=== PATIENT | female | born 1945 | race Caucasian/White ===

== ENCOUNTER 2017-08-07 22:09 | Inpatient (IN) | payer MEDICARE, OTHER ==
[2017-08-07] MEDS ORDERED: NS 0.9% 1000 ML* 2,000 ML IV ONE (22:39)
[2017-08-07] MEDS ORDERED: methylPREDNISolone 125 MG* 2 ML VIAL IV ONE (22:39)
[2017-08-07] MEDS ORDERED: Acetaminophen TAB* 325 MG PO ONE (22:39)
[2017-08-07] MEDS ORDERED: Levofloxacin 750 MG IVPREMIX(* 750 MG/150 ML BAG IVPB ONE (22:42)
[2017-08-07] MEDS ORDERED: Albuterol/Ipratropium NEB.SOL* Albuterol 2.5 MG/Ipratropium 0.5 MG 3 ML INH ONE (22:42)
[2017-08-07] MEDS ORDERED: Magnesium Sulfate 2 GM IV* 2 GM/50 ML BAG IVPB ONE (22:42)
[2017-08-07] MEDS ORDERED: NS 0.9% 1000 ML* 1,000 ML IV ONE (22:46)
[2017-08-07] MEDS: Albuterol 2.5 MG/3 ML NEB.SOL* (0.083%) INH SCH ×2 (23:05→23:25)
[2017-08-07 23:08] LABS: Hematocrit 38 % (35-47); Hemoglobin 12.5 g/dl (12.0-16.0); Mean Corpuscular HGB Conc 33 g/dl (31-36); Mean Corpuscular Hemoglobin 31 pg (27-31); Mean Corpuscular Volume 94 fL (80-97); Mean Platelet Volume 7 um3 (7.4-10.4); Platelet Count 190 10^3/ul (150-450); Red Blood Count 4.03 10^6/ul (4.0-5.4); Red Cell Distribution Width 13 % (10.5-15); White Blood Count 6.6 10^3/ul (3.5-10.8)
[2017-08-07 23:15] LABS: INR 1.06 (0.77-1.02)
[2017-08-07 23:18] LABS: ABS Basophils 0 10^3/ul (0-0.2); ABS Eosinophils 0 10^3/ul (0-0.6); ABS Lymphocytes 0.3 10^3/ul (1.0-4.8); ABS Monocytes 0.1 10^3/ul (0-0.8); ABS Nucleated RBC 0 10^3/ul; Eosinophil % 0.6 % (0-6); Lymphocyte % 5.4 % (25-47); Nucleated Red Blood Cells % 0.1
[2017-08-07 23:22] LABS: EGFR Non-African American 36.9 (>60)
[2017-08-07] MEDS ORDERED: Ibuprofen TAB* 800 MG PO ONE ×2 (23:57→23:58)
--- NOTE | 2017-08-08 01:02 | ED ---
Holley Knott Abhishek, scribed for Jayson Garza MD on 08/07/17 at 2358 . HPI Febrile Illness - HPI Summary HPI Summary: This patient is a 71 year old F presenting to [facility] accompanied by male with a chief complaint of SOB since 2100. The pt stated the symptoms lasted for one hour. Pertinent PMHx includes COPD and CHF. Pt has an Oxygen tank at home (2L/ min via NC). Pt also reportedly speaks in short phrases. The patient rates the pain 0/10 in severity. Symptoms aggravated by nothing. Symptoms alleviated by nothing. Patient reports fever and hot flashes. - History of Current Complaint Chief Complaint: EDShortnessOfBreath Time Seen by Provider: 08/07/17 22:21 Hx Obtained From: Patient Onset/Duration: Started Hours Ago - at 2100 Timing: Lasting Hours - one hour Pain Intensity: 0 Pain Scale Used: 0-10 Numeric Aggravating Factors: Nothing Alleviating Factors: Nothing - Additional Pertinent History Primary Care Physician: STEPHENIE - Allergy/Home Medications Allergies/Adverse Reactions: Allergies Allergy/AdvReac Type Severity Reaction Status Date / Time No Known Allergies Allergy Verified 08/07/17 22:16 Home Medications: Home Medications Albuterol/Ipratropium RESP(NF) [Combivent Respimat(NF)] 1 aer IN BID 08/08/17 [ History Confirmed 08/08/17] Apixaban* [Eliquis] 5 mg PO BID 08/08/17 [History Confirmed 08/08/17] Atorvastatin Calcium [Lipitor] 20 mg PO DAILY 08/08/17 [History Confirmed ] Bisoprolol Fumarate [Bisoprolol Fumarate-] 10 mg PO DAILY 08/08/17 [History Confirmed 08/08/17] Fluticasone HFA 110 mcg(NF) [Flovent HFA 110 mcg(NF)] 1 inh .ROUTE QID 08/08/17 [History Confirmed 08/08/17] Fluticasone Propionate [Flonase Allergy Relief] 50 mcg NA DAILY 08/08/17 [ History Confirmed 08/08/17] Gabapentin 300 mg PO TID 08/08/17 [History Confirmed 08/08/17] Losartan TAB* [Cozaar TAB*] 25 mg PO DAILY 08/08/17 [History Confirmed 08/08/17] Sildenafil (PULMONARY)(NF) [Revatio (NF)] 20 mg PO DAILY 08/08/17 [History Confirmed 08/08/17] Sitagliptin Phosphate [Januvia] 100 mg PO DAILY 08/08/17 [History Confirmed 06/13] Spironolactone 25 mg PO DAILY 08/08/17 [History Confirmed 08/08/17] Torsemide 10 mg PO BID 08/08/17 [History Confirmed 08/08/17] Trazodone HCl 100 mg PO BEDTIME 08/08/17 [History Confirmed 08/08/17] metFORMIN* [Glucophage 500 MG TAB *] 500 mg PO DAILY 08/08/17 [History Confirmed 08/08/17] PMH/Surg Hx/FS Hx/Imm Hx Endocrine/Hematology History: Reports: Hx Diabetes Denies: Hx Anticoagulant Therapy, Hx Blood Disorders, Hx Blood Transfusions, Hx Bone Marrow Disease, Hx Systemic Lupus Erythematosus, Hx Sickle Cell Disease , Hx Thyroid Disease, Hx Anemia, Hx Unexplained Bleeding, Other Endocrine/ Hematological Disorders Cardiovascular History: Reports: Hx Congestive Heart Failure, Hx Hypercholesterolemia, Hx Hypertension Denies: Hx Aneurysm, Hx Angina, Hx Angioplasty, Hx Auto Implanted Cardiovert Defib, Hx Cardiac Arrest, Hx Cardiomegaly, Hx Congenital Heart Disease, Hx Coronary Artery Disease, Hx Deep Vein Thrombosis, Hx Embolism, Hx Hypotension, Hx Pacemaker/ICD, Hx Peripheral Vascular Disease, Hx Rheumatic Fever, Hx Syncope , Hx Valvular Heart Disease, Other Cardiovascular Problems/Disorders Respiratory History: Reports: Hx Chronic Obstructive Pulmonary Disease (COPD), Hx Sleep Apnea - CPap at HS, Home oxygen at 2 liters, Other Respiratory Problems /Disorders - Pulmonary HTN Denies: Hx Asthma, Hx Chronic Bronchitis, Hx Cystic Fibrosis, Hx Lung Cancer , Hx Pleural Effusion, Hx Pneumonia, Hx Pulmonary Edema, Hx Pulmonary Embolism, Hx Seasonal Allergies GI History: Denies: Hx Ulcer History: Reports: Hx Acute Renal Failure, Other Problems/Disorders - UTI Denies: Hx Renal Disease Comment Only: Hx Chronic Renal Failure - Yes-2004 Musculoskeletal History: Reports: Hx Arthritis, Hx Back Problems - If in one position too long, Hx Orthopedic Injury - Left knee and ankle surgery Denies: Hx Bursitis, Hx Congenital Bone Abnormalities, Hx Fibromyalgia, Hx Gout, Hx Osteoporosis, Hx Scoliosis, Hx Tendonitis, Other Musculoskeletal History Sensory History: Reports: Hx Contacts or Glasses - Reading glasses Opthamlomology History: Reports: Hx Contacts or Glasses - Reading glasses Neurological History: Denies: Hx Dementia, Hx Seizures Psychiatric History: Denies: Hx Anxiety, Hx Attention Deficit Hyperactivity Disorder, Hx Eating Disorder, Hx Depression, Hx Panic Disorder, Hx Post Traumatic Stress Disorder, Hx Inpatient Treatment, Hx Community Mental Health Tx, Hx Schizophrenia, Hx Bipolar Disorder, Hx Suicide Attempt, Hx of Violent Episodes Against Others, Hx Substance Abuse, Other Psychiatric Issues/Disorders - Surgical History Surgery Procedure, Year, and Place: hysterectomy, lt knee ACL repair, lt ankle ORIF Hx Anesthesia Reactions: No - Immunization History Date of Influenza Vaccine: 04/07 Infectious Disease History: No Infectious Disease History: Denies: Hx Clostridium Difficile, Hx Hepatitis, Hx Human Immunodeficiency Virus (HIV), Hx of Known/Suspected MRSA, Hx Shingles, Hx Tuberculosis, Traveled Outside the in Last 30 Days - Family History Known Family History: Positive: Hypertension, Diabetes, Other - Lung Cancer - Social History Occupation: Retired Lives: With Family Alcohol Use: None Substance Use Type: Reports: None Smoking Status (MU): Former Smoker Type: Cigarettes Length of Time of Smoking/Using Tobacco: 40 yrs Have You Smoked in the Last Year: No Review of Systems Positive: Fever, Other - Hot flashes Eyes: Negative ENT: Negative Cardiovascular: Negative Positive: Shortness Of Breath Gastrointestinal: Negative Genitourinary: Negative Musculoskeletal: Negative Skin: Negative Neurological: Negative Psychological: Normal All Other Systems Reviewed And Are Negative: Yes Physical Exam - Summary Physical Exam Summary: VITAL SIGNS: Reviewed. GENERAL: ~Patient is an Obese FEMALE who is lying comfortable in the stretcher. Patient is not in any acute respiratory distress. HEAD AND FACE: No signs of trauma. No ecchymosis, hematomas or skull depressions. No sinus tenderness. EYES: PERRLA, EOMI x 2, No injected conjunctiva, no nystagmus. EARS: Hearing grossly intact. Ear canals and tympanic membranes are within normal limits. MOUTH: Oropharynx within normal limits. NECK: Supple, trachea is midline, no adenopathy, no JVD, no carotid bruit, no c- spine tenderness, neck with full ROM. CHEST: Symmetric, no tenderness at palpation LUNGS: increased shortness of breathes, bilateral expiratory wheezes, Decreased breath sounds CVS: Regular rate and rhythm, S1 and S2 present, no murmurs or gallops appreciated. ABDOMEN: Soft, non-tender. No signs of distention. No rebound no guarding, and no masses palpated. Bowel sounds are normal. EXTREMITIES: FROM in all major joints, Trace edema bilaterally LE, no cyanosis or clubbing. NEURO: Alert and oriented x 3. No acute neurological deficits. Speech is normal and follows commands. SKIN: Dry and warm Triage Information Reviewed: Yes Vital Signs On Initial Exam: Initial Vitals Temp Pulse Resp BP Pulse Ox 99.5 F 103 25 120/72 92 08/07/17 22:13 08/07/17 22:13 08/07/17 22:13 08/07/17 22:13 08/07/17 22:13 Vital Signs Reviewed: Yes Diagnostics - Vital Signs Vital Signs Temp Pulse Resp BP Pulse Ox 08/07/17 23:07 98 19 97 08/07/17 23:00 97 24 92 08/07/17 22:30 144/58 08/07/17 22:27 102 89 08/07/17 22:26 147/61 08/07/17 22:13 99.5 F 103 25 120/72 92 - Laboratory Lab Results: Lab Results 08/07/17 08/07/17 08/07/17 Range/Units 22:50 22:50 22:50 WBC (3.5-10.8) 10^3/ul RBC (4.0-5.4) 10^6/ul Hgb (12.0-16.0) g/dl Hct (35-47) % MCV (80-97) fL MCH (27-31) pg MCHC (31-36) g/dl RDW (10.5-15) % Plt Count (150-450) 10^3/ul MPV (7.4-10.4) um3 Neut % (Auto) (38-83) % Lymph % (Auto) (25-47) % Mercer % (Auto) (1-9) % Eos % (Auto) (0-6) % Baso % (Auto) (0-2) % Absolute Neuts (auto) (1.5-7.7) 10^3/ul Absolute Lymphs (auto) (1.0-4.8) 10^3/ul Absolute Monos (auto) (0-0.8) 10^3/ul Absolute Eos (auto) (0-0.6) 10^3/ul Absolute Basos (auto) (0-0.2) 10^3/ul Absolute Nucleated RBC 10^3/ul Nucleated RBC % INR (Anticoag Therapy) (0.77-1.02) APTT (26.0-36.3) seconds Sodium 136 (133-145) mmol/L Potassium 4.4 (3.5-5.0) mmol/L Chloride 99 L (101-111) mmol/L Carbon Dioxide 31 (22-32) mmol/L Anion Gap 6 (2-11) mmol/L BUN 20 (6-24) mg/dL Creatinine 1.41 H (0.51-0.95) mg/dL Est GFR ( Amer) 47.4 (>60) Est GFR (Non-Af Amer) 36.9 (>60) BUN/Creatinine Ratio 14.2 (8-20) Glucose 203 H (70-100) mg/dL Lactic Acid 2.5 H* (0.5-2.0) mmol/L Calcium 10.1 (8.6-10.3) mg/dL Total Bilirubin 0.40 (0.2-1.0) mg/dL AST 15 (13-39) U/L ALT 10 (7-52) U/L Alkaline Phosphatase 63 (34-104) U/L Troponin I 0.05 H* (<0.04) ng/mL C-Reactive Protein 14.14 H (< 5.00) mg/L B-Natriuretic Peptide 96 ( - 100) pg/mL Total Protein 7.3 (6.4-8.9) g/dL Albumin 4.1 (3.2-5.2) g/dL Globulin 3.2 (2-4) g/dL Albumin/Globulin Ratio 1.3 (1-3) Influenza A (Rapid) (Negative) Influenza B (Rapid) (Negative) 08/07/17 08/07/17 08/07/17 Range/Units 22:50 22:50 23:36 WBC 6.6 (3.5-10.8) 10^3/ul RBC 4.03 (4.0-5.4) 10^6/ul Hgb 12.5 (12.0-16.0) g/dl Hct 38 (35-47) % MCV 94 (80-97) fL MCH 31 (27-31) pg MCHC 33 (31-36) g/dl RDW 13 (10.5-15) % Plt Count 190 (150-450) 10^3/ul MPV 7 L (7.4-10.4) um3 Neut % (Auto) 92.6 H (38-83) % Lymph % (Auto) 5.4 L (25-47) % Mercer % (Auto) 1.3 (1-9) % Eos % (Auto) 0.6 (0-6) % Baso % (Auto) 0.1 (0-2) % Absolute Neuts (auto) 6.0 (1.5-7.7) 10^3/ul Absolute Lymphs (auto) 0.3 L (1.0-4.8) 10^3/ul Absolute Monos (auto) 0.1 (0-0.8) 10^3/ul Absolute Eos (auto) 0 (0-0.6) 10^3/ul Absolute Basos (auto) 0 (0-0.2) 10^3/ul Absolute Nucleated RBC 0 10^3/ul Nucleated RBC % 0.1 INR (Anticoag Therapy) 1.06 H (0.77-1.02) APTT 27.1 (26.0-36.3) seconds Sodium (133-145) mmol/L Potassium (3.5-5.0) mmol/L Chloride (101-111) mmol/L Carbon Dioxide (22-32) mmol/L Anion Gap (2-11) mmol/L BUN (6-24) mg/dL Creatinine (0.51-0.95) mg/dL Est GFR ( Amer) (>60) Est GFR (Non-Af Amer) (>60) BUN/Creatinine Ratio (8-20) Glucose (70-100) mg/dL Lactic Acid (0.5-2.0) mmol/L Calcium (8.6-10.3) mg/dL Total Bilirubin (0.2-1.0) mg/dL AST (13-39) U/L ALT (7-52) U/L Alkaline Phosphatase (34-104) U/L Troponin I (<0.04) ng/mL C-Reactive Protein (< 5.00) mg/L B-Natriuretic Peptide ( - 100) pg/mL Total Protein (6.4-8.9) g/dL Albumin (3.2-5.2) g/dL Globulin (2-4) g/dL Albumin/Globulin Ratio (1-3) Influenza A (Rapid) Negative (Negative) Influenza B (Rapid) Negative (Negative) Result Diagrams: 08/07/17 22:50 08/07/17 22:50 Lab Statement: Any lab studies that have been ordered have been reviewed, and results considered in the medical decision making process. - Radiology Chest X-ray Radiology Interpretation Completed By: Radiologist - CXR reveals CXR reveals Cardiomegaly no acute infiltrate as per ED physician. - EKG 0022 EKG Rhythm: Sinus Tachycardia - 115 bpm EKG Interpretation: normal intervals, normal axis, no acute ischemic changes Course/Dx - Course Course Of Treatment: The pt is a 71 F presenting to the [facility] with a CC of SOB. The pt has hx of COPD and CHF. Pt also reports fever and hot flashes and states that symptoms lasted for one hour. PT did not receive standard IV fluid for sepsis because she has a hx of CHF. EKG was taken at 0022 and CXR was taken as well revealing cardiomegaly no acute infiltrate as per ED physician. The pt will be dx with COPD excacerbation, bronchitis, and viral syndrome. - Diagnoses Provider Diagnoses: COPD exacerbation, Bronchitis, Viral syndrome - Provider Notifications Discussed Care Of Patient With: Amrtia Cheatham - we discussed pt care and she accepted pt care Discharge - Discharge Plan Condition: Stable Disposition: ADMITTED TO [facility] Referrals: Michael Aparicio MD [Primary Care Provider] - The documentation as recorded by the Holley harper Abhishek accurately reflects the service I personally performed and the decisions made by , Jayson Garza MD.
[2017-08-08] MEDS ORDERED: Ondansetron INJ* 2 MG/ML VIAL IV PRN (01:35)
[2017-08-08] MEDS ORDERED: Al Hydrox/Mg Hydrox/Simet LIQ* 30 ML UDC PO PRN (01:35)
[2017-08-08] MEDS ORDERED: Docusate CAP* 100 MG PO PRN (01:35)
[2017-08-08] MEDS ORDERED: Senna TAB PO PRN (01:35)
[2017-08-08] MEDS ORDERED: traZODone TAB* 50 MG TAB PO PRN (01:37)
[2017-08-08] MEDS ORDERED: Albuterol/Ipratropium NEB.SOL* Albuterol 2.5 MG/Ipratropium 0.5 MG 3 ML INH PRN (01:39)
[2017-08-08] MEDS ORDERED: Dextrose 50% Syringe 50 ML* 25 GM/50 ML SYRINGE IV PUSH PRN (01:51)
[2017-08-08 01:54] LABS: Urine Appearance Cloudy; Urine Blood 3+ (Negative); Urine Color Yellow; Urine Ketones Negative (Negative); Urine Protein 2+(100 mg/dL) (Negative); Urine Specific Gravity 1.015 (1.010-1.030); Urine Urobilinogen Negative (Negative)
[2017-08-08 06:06] LABS: ABS Basophils 0 10^3/ul (0-0.2); ABS Eosinophils 0 10^3/ul (0-0.6); ABS Lymphocytes 0.3 10^3/ul (1.0-4.8); ABS Monocytes 0.5 10^3/ul (0-0.8); ABS Neutrophils 14.2 10^3/ul (1.5-7.7); ABS Nucleated RBC 0 10^3/ul; Eosinophil % 0 % (0-6); Hematocrit 33 % (35-47); Hemoglobin 10.9 g/dl (12.0-16.0); Lymphocyte % 1.8 % (25-47); Mean Corpuscular HGB Conc 33 g/dl (31-36); Mean Corpuscular Hemoglobin 31 pg (27-31); Mean Corpuscular Volume 95 fL (80-97); Mean Platelet Volume 7 um3 (7.4-10.4); Nucleated Red Blood Cells % 0; Platelet Count 179 10^3/ul (150-450); Red Blood Count 3.49 10^6/ul (4.0-5.4); Red Cell Distribution Width 14 % (10.5-15)
--- NOTE | 2017-08-08 06:19 | HP ---
HISTORY AND PHYSICAL: DATE OF ADMISSION: 08/08/17 TIME OF EVALUATION: 0100 PRIMARY CARE PHYSICIAN: Michael Aparicio MD CHIEF COMPLAINT: Shakes, chills and fever. HISTORY OF PRESENT ILLNESS: This is a 71-year-old female with a past medical history of COPD and diabetes who presents to the emergency room with acute onset of chills and not feeling well. She states she was in her usual state of health today while she was watching TV with her cousin, when she developed acute onset of shakes, chills. She said she was breathing okay, but it was not improving. She had called her son to have him bring her to the emergency room. She states no shortness of breath, no chest pain. She was not coughing, no congestion, no URI symptoms. No nausea, no vomiting, no diarrhea, no abdominal pain, no dysuria. She states she felt some urinary pressure earlier today when she urinated. No rash, no sick contacts. Otherwise, review of systems is negative. In the emergency room, the patient had labs and imaging. She was given Tylenol, albuterol, DuoNeb, ibuprofen, Levaquin, 2 g of magnesium, Solu- Medrol 125 in 1 L of fluid and was referred to the hospitalist service for further evaluation. PAST MEDICAL HISTORY: 1. Paroxysmal atrial fibrillation, on anticoagulation. 2. Obstructive sleep apnea, on CPAP. 3. Diabetes. 4. COPD, wears oxygen at bedtime and as needed. 5. Hypertension. 6. Morbid obesity. 7. Hyperlipidemia. 8. Pulmonary hypertension. PAST SURGICAL HISTORY: 1. Hysterectomy. 2. ORIF of the left lower extremity. MEDICATIONS: 1. Flonase 50 mcg daily. 2. Flovent 110 mcg inhaled 4 times a day. 3. Combivent inhaler b.i.d. 4. Januvia 100 mg p.o. daily. 5. Bisoprolol 10 mg daily. 6. Torsemide 10 mg p.o. b.i.d. 7. Spironolactone 25 mg p.o. daily. 8. Gabapentin 300 mg p.o. t.i.d. 9. Metformin 500 mg p.o. daily. 10. Eliquis 5 mg p.o. b.i.d. 11. Trazodone 100 mg p.o. at bedtime. 12. Sildenafil 20 mg p.o. daily. 13. Cozaar 25 mg daily. 14. Atorvastatin 20 mg daily. ALLERGIES: No known drug allergies. SOCIAL HISTORY: The patient lives with her cousin. She is independent with ADLs. Remote smoking history 50 years ago, off and on for a few years. No alcohol use or illicit drug use. Her healthcare proxy is her son, Randall Sparks. REVIEW OF SYSTEMS: As mentioned in the HPI, otherwise negative. FAMILY HISTORY: Father at age 75 from lung cancer, sister with diabetes. CODE STATUS: Full code. PHYSICAL EXAMINATION GENERAL: No acute distress, resting comfortably, appears diaphoretic. VITAL SIGNS: T-max was 104, pulse rate 107, respiratory rate 23, oxygen saturation 93% on 2 L, blood pressure 144/58. HEENT: Head: Normocephalic. Pupils: Equal and reactive, anicteric. Oropharynx: Mucous membranes are dry. NECK: Supple. No lymphadenopathy. RESPIRATORY: Diminished breath sounds. Prolonged expiratory phase. No wheezing, rhonchi, or rales. No increased work of breathing. CARDIAC: Tachycardia. Soft systolic murmur heard. ABDOMEN: Soft, nontender, nondistended. EXTREMITIES: No clubbing, cyanosis, or edema. +1 DP. NEUROLOGIC: Alert and oriented x3. No focal neurologic deficits. LABORATORY DATA: White count 6.6, hemoglobin 12.4, hematocrit 38, platelets 190. Neutrophil percent was 92.6. INR was 1.06. Sodium 136, potassium 4.4, chloride 99, bicarb 31, BUN 20, creatinine 1.41, glucose 203. Troponin 0.05. CRP is 14. Negative flu. RADIOGRAPHIC DATA: Chest x-ray, question of a prominence on the right lower lobe. EKG shows sinus tachycardia. ASSESSMENT: This is a 71-year-old female with past medical history of diabetes , chronic obstructive pulmonary disease who presents to the emergency room with acute onset of rigors. 1. Rigors. Assessment: The patient meets criteria for systemic inflammatory response syndrome. She is flu negative. Chest x-ray is unremarkable and she has no URI symptoms. I am suspicious for a UTI with her symptoms of urinary pressure earlier. It may be that her acute onset swab was negative and may be worthwhile repeating. Plan: We will check her procalcitonin level, continue IV fluids, continue her on cefepime and follow up a urinalysis, which has not been done yet, and follow up on her cultures. 2. Acute kidney injury. The patient appears to have chronic kidney disease from prior creatinine function in the past. It is elevated from her last one in December. Plan: We will hold her Cozaar and spironolactone for now. I will repeat her labs after getting IV fluids. 3. Elevation in troponin. The patient has no chest pain. Sinus tach on her EKG could be demand ischemia. We will repeat a troponin. 4. Chronic medical problems: 1. Chronic obstructive pulmonary disease. Resume her inhaler regimen. 2. Diabetes. We will put her on Lispro sliding scale, hold her oral agents. 3. Paroxysmal atrial fibrillation. Continue her on Eliquis and her bisoprolol. 4. Hypertension. Continue her sildenafil. As mentioned, hold her Cozaar and spironolactone and furosemide. We will resume once she is more stable. 5. Hyperlipidemia. Continue her Lipitor. 5. FEN: Place her on a diabetic diet with gentle IV fluids. 6. DVT prophylaxis: The patient scores high risk. She is on Eliquis. 7. Code status: Full code. PATIENT TIME: Greater than 60 minutes spent doing the history and physical, more than half the time spent in direct patient contact. [id number]/[facility] #: [id number] THERON
[2017-08-08 06:28] LABS: EGFR Non-African American 35.4 (>60)
--- NOTE | 2017-08-08 07:59 | RAD ---
INDICATION: Shortness of breath. COMPARISON: Comparison is made with a prior study from January 11, 2015. TECHNIQUE: A portable view of the chest was obtained. FINDINGS: The heart is mildly enlarged and unchanged from the prior exam. The lungs are clear. No pleural effusion is seen. IMPRESSION: NO EVIDENCE FOR ACUTE DISEASE.
[2017-08-08] MEDS ORDERED: SILDENAFIL 20 MG PO SCH (09:00)
[2017-08-08] MEDS: Fluticasone NASAL SPRAY 50MCG* 16 gm SPRAY BTL BOTH NARES SCH (09:01)
[2017-08-08] MEDS: SILDENAFIL 20 MG PO SCH (09:01)
[2017-08-08] MEDS: Insulin LISPRO* 1 UNITS UNIT SUBCUT SCH ×3 (09:02→17:34)
[2017-08-08] MEDS: Bisoprolol TAB* 5 MG PO SCH (09:02)
[2017-08-08] MEDS: Gabapentin CAP(*) 300 MG PO SCH ×3 (09:02→21:01)
[2017-08-08] MEDS: Apixaban* 5 MG TAB PO SCH ×2 (09:02→21:00)
[2017-08-08] MEDS: NS 0.9% 1000 ML* 1,000 ML IV SCH ×2 (11:27→20:59)
--- NOTE | 2017-08-08 11:59 | ECHO ---
Patient: BETHANY MONTAÑO Rec#: [id number] : 1945 Date: 08/08/2017 Age: 71y Height: 170.18 cm / 67.0 in Weight: 127.01 kg / 279.9 lbs Sex: F BSA: 2.33 Room#: 6 Admit Date#: 08/08/2017 Type: Inpatient Referring: Amrita Cheatham Reading: Axel Bermudez MD [employer] Designer: Elizabeth Acevedo RD,RDMS CC: Michael Aparicio MD Transthoracic Echocardiogram Indication: Fever, Elevated Trop BP: 117/42 HR: 79 Rhythm: NSR Findings History: COPD, DM, AFIB, FERNANDO, HTN, PHTN, HLD, murmur Technical Comments: The study quality is fair. Left Ventricle: The left ventricular chamber size is normal. Mild concentric left ventricular hypertrophy is observed. Global left ventricular wall motion and contractility are within normal limits. There is normal left ventricular systolic function. The estimated ejection fraction is 55-60%. Abnormal left ventricular diastolic filling is observed, consistent with impaired relaxation. Left Atrium: The left atrium is severely dilated. Right Ventricle: The right ventricle is mildly dilated. The right ventricular global systolic function is normal. Right Atrium: The right atrium is not well visualized. The right atrium is moderately dilated. Aortic Valve: The aortic valve leaflets are mildly thickened. There is no evidence of aortic regurgitation. There is no evidence of aortic stenosis. Mitral Valve: Moderate mitral annular calcification present. The mitral valve leaflets are mildly thickened. There is mild mitral regurgitation. There is borderline mitral stenosis. Tricuspid Valve: The tricuspid valve leaflets are normal. There is moderate tricuspid regurgitation. There is evidence of mild to moderate pulmonary hypertension. Pulmonic Valve: There is no evidence of pulmonic valve thickening. There is trace to mild pulmonic regurgitation. Pericardium: There is no significant pericardial effusion. Aorta: The aortic root appears normal. There is mild dilatation of the aortic arch. Pulmonary Artery: The main pulmonary artery is not well visualized. Venous: The inferior vena cava is dilated. There is less than 50% respiratory change in the inferior vena cava dimension. Summary: There are no significant changes when compared to the previous study done on 01/08/15 Conclusions Global left ventricular wall motion and contractility are within normal limits. There is normal left ventricular systolic function. The estimated ejection fraction is 55-60%. The right ventricular global systolic function is normal. There is no evidence of aortic stenosis. There is mild mitral regurgitation. There is moderate tricuspid regurgitation. There is evidence of mild to moderate pulmonary hypertension. There is no significant pericardial effusion. There are no significant changes when compared to the previous study done on 01/08/15 Measurements Name Value Normal Range RVIDd (AP) 2D 3.1 cm (0.9 - 2.6) RAd ISD 4CH 6.8 cm (3.4 - 4.9) IVSd (2D) 1.2 cm (0.6 - 1) LVPWd (2D) 1.2 cm (0.6 - 1) LVIDd (2D) 5.4 cm (3.6 - 5.4) LVIDs (2D) 3.5 cm - LV FS (2D) 36 % (25 - 45) Aortic Annulus 2.2 cm (1.4 - 2.6) Ao root diameter (2D) 3.3 cm (2.1 - 3.5) Ascending Ao 3.4 cm (2.1 - 3.4) Aortic arch 3.5 cm (1.8 - 3.4) LA dimension (AP) 2D 4.4 cm (2.3 - 3.8) LAd ISD 4CH 7.3 cm (2.9 - 5.3) LA ISD 4CH W 4.8 cm (2.5 - 4.5) Name Value Normal Range LA ESV SP 4CH (A/L) 94.66 ml - LA ESV SP 2CH (A/L) 99.68 ml - LA ESV BP (A/L) 100.53 ml - LA ESV BP (A/L) index 43 ml/m2 - LA ESV SP 4CH (MOD) 84.14 ml - LA ESV SP 2CH (MOD) 92.52 ml - Name Value Normal Range MV E-wave Vmax 0.92 m/sec - MV deceleration time 168 msec - MV A-wave Vmax 1.2 m/sec - MV E:A ratio 0.8 ratio - LV septal e' Vmax 0.06 m/sec - LV lateral e' Vmax 0.08 m/sec - LV E:e' septal ratio 15 ratio - LV E:e' lateral ratio 11.2 ratio - Name Value Normal Range AV Vmax 1.7 m/sec - AV VTI 41 cm - AV peak gradient 11.5 mmHg - AV mean gradient 6.7 mmHg - LVOT Vmax 1.1 m/sec - LVOT VTI 30 cm - LVOT peak gradient 5 mmHg - LVOT mean gradient 2.9 mmHg - JEFRY Vmax 0.9 m/sec - Name Value Normal Range MV Vmax 1.4 m/sec - MV VTI 32 cm - MV peak gradient 8 mmHg - MV mean gradient 3 mmHg - MV PHT 42 msec - MVA (PHT) 5.2 cm2 - Name Value Normal Range TR Vmax 3 m/sec - TR peak gradient 36 mmHg - RAP 8 mmHg - RVSP 44 mmHg - IVC diameter 2.4 cm - Name Value Normal Range PV Vmax 1 m/sec - PV peak gradient 4 mmHg -
[2017-08-08] MEDS: Cefepime 1 GM in Dextrose(*) 1 GM/50 ML BAG IV SCH (12:21)
[2017-08-08] MEDS ORDERED: Cefepime(*) 1 GM in NS 0.9% 50 ML* 50 ML IVPB SCH (13:00)
[2017-08-08] MEDS: metroNIDAZOLE IV 500 MG/100ML* 500 MG/100 ML BAG IVPB SCH ×2 (13:07→21:00)
--- NOTE | 2017-08-08 16:55 | PN ---
Subjective Date of Service: 08/08/17 Interval History: Patient seen and examined. States breathing is better, no further rigors today. Denies chest pain, no SOB, remains on O2. No further complaints. Objective Active Medications: Acetaminophen (Tylenol Tab*) 650 mg PO Q4H PRN PRN Reason: FEVER/PAIN Al Hydrox/Mg Hydrox/Simethicone (Maalox Plus*) 30 ml PO Q6H PRN PRN Reason: INDIGESTION Albuterol/Ipratropium (Duoneb (Albuterol 2.5 Mg/Ipratropium 0.5 Mg)) 1 neb INH Q4H PRN PRN Reason: SOB/WHEEZING Apixaban (Eliquis*) 5 mg PO BID [facility] Last Admin: 08/08/17 09:02 Dose: 5 mg Atorvastatin Calcium (Lipitor*) 20 mg PO 1700 [facility] Bisoprolol Fumarate (Zebeta Tab*) 10 mg PO DAILY [facility] Last Admin: 08/08/17 09:02 Dose: 10 mg Dextrose (D50w Syringe 50 Ml*) 12.5 gm IV PUSH .FOR FS < 60 - SS PRN PRN Reason: FS < 60 Docusate Sodium (Colace Cap*) 100 mg PO BID PRN PRN Reason: CONSTIPATION Fluticasone Propionate (Flonase Nasal [place] 50mcg*) 2 spray BOTH NARES DAILY [facility] Last Admin: 08/08/17 09:01 Dose: 2 spray Gabapentin (Neurontin Cap(*)) 300 mg PO TID [facility] Last Admin: 08/08/17 13:08 Dose: 300 mg Sodium Chloride (Ns 0.9% 1000 Ml*) 1,000 mls @ 125 mls/hr IV PER RATE [facility] Last Admin: 08/08/17 11:27 Dose: 125 mls/hr Cefepime HCl (Maxipime 1 Gm In Dextrose Duplex (*)) 1 gm in 50 mls @ 100 mls/ hr IV Q12H [facility] Last Admin: 08/08/17 12:21 Dose: 100 mls/hr Metronidazole/Sodium Chloride (Flagyl 500 Mg Ivpb*) 500 mg in 100 mls @ 100 mls /hr IVPB Q8H [facility] Last Admin: 08/08/17 13:07 Dose: 100 mls/hr Insulin Human Lispro (Humalog*) 0 units SUBCUT AC [facility] PRN Reason: Protocol Last Admin: 08/08/17 12:33 Dose: 2 units Mometasone Furoate (Asmanex 220 Mcg Mdi *) 2 puff INH QPM [facility] Ondansetron HCl (Zofran Inj*) 4 mg IV Q4H PRN PRN Reason: NAUSEA/VOMITING Senna (Senokot Tab*) 1 tab PO BID PRN PRN Reason: CONSTIPATION Sildenafil Citrate (Revatio (Nf)) 20 mg PO DAILY [facility] PRN Reason: Protocol Last Admin: 08/08/17 09:01 Dose: 20 mg Trazodone HCl (Desyrel Tab*) 100 mg PO BEDTIME PRN PRN Reason: SLEEP Vital Signs - 8 hr 08/08/17 08/08/17 08/08/17 09:02 11:06 13:08 Temperature 97.5 F Pulse Rate 80 Respiratory 18 18 18 Rate Blood Pressure 132/58 (mmHg) O2 Sat by Pulse 95 Oximetry 08/08/17 15:22 Temperature 97.7 F Pulse Rate 76 Respiratory 20 Rate Blood Pressure 139/56 (mmHg) O2 Sat by Pulse 95 Oximetry Oxygen Devices in Use Now: Nasal Cannula Appearance: Alert, NAD Ears/Nose/Mouth/Throat: NL Teeth, Lips, Gums, Mucous Membranes Moist Neck: NL Appearance and Movements; NL JVP, Trachea Midline Respiratory: Symmetrical Chest Expansion and Respiratory Effort, - - clear at apices, diminished base Cardiovascular: NL Sounds; No Murmurs; No JVD, RRR, - - bilateral LE edema L>R Abdominal: NL Sounds; No Tenderness; No Distention, - - obese Extremities: No Clubbing, Cyanosis Neurological: Alert and Oriented x 3 Nutrition: Taking PO's Result Diagrams: 08/08/17 05:43 08/08/17 05:43 Additional Lab and Data: Diagnostic Imaging: Patient Name: BETHANY MONTAÑO Medical Record#: [id number] Ordering Physician: Jayson Garza MD Acct.#: [id number] : 1945 Age: 71 Sex: F Location: [address] [place] [address] MEDICAL/TELEMETRY Exam Date: 08/07/17 2240 ADM Status: ADM IN Order Information: CHEST AP PORTABLE Accession Number: [id number] CPT: 85605 INDICATION: Shortness of breath. COMPARISON: Comparison is made with a prior study from January 11, 2015. TECHNIQUE: A portable view of the chest was obtained. FINDINGS: The heart is mildly enlarged and unchanged from the prior exam. The lungs are clear. No pleural effusion is seen. IMPRESSION: NO EVIDENCE FOR ACUTE DISEASE. <Electronically signed by Robert Foley MD in OV> 08/08/17 075 Dictated By: Robert Foley MD Dictated Date/Time: 08/08/17 075 Transcribed Date/Time: 08/08/17 0754 Copy to: Cardiac ECHO 08/08/17: Conclusions Global left ventricular wall motion and contractility are within normal limits. There is normal left ventricular systolic function. The estimated ejection fraction is 55-60%. The right ventricular global systolic function is normal. There is no evidence of aortic stenosis. There is mild mitral regurgitation. There is moderate tricuspid regurgitation. There is evidence of mild to moderate pulmonary hypertension. There is no significant pericardial effusion. There are no significant changes when compared to the previous study Assess/Plan/Problems-Billing Assessment: This is a 71 year old morbidly obese female with hx of afib, FERNANDO, DMII, HTN, PHTN, COPD that presented to the ER with c/o rigors and SOB, admitted for SIRS, now with positive blood culture. - Patient Problems (1) SIRS due to Gram-negative infection Code(s): A41.50 - GRAM-NEGATIVE SEPSIS, UNSPECIFIED SNOMED Code(s): 221874270 Comment: - IVF rescusitation for sepsis, urinary source? - 1 anaerobe bottle of 4, pos for gram neg bacilli today - Procalcitonin = 28 - On cefepime and levaquin, flagyl added today - Follow cultures and trend temps - ID consulted (2) Dehydration Code(s): E86.0 - DEHYDRATION SNOMED Code(s): 36261411 Comment: - Monitor for fluid overload after IV hydration in ER (3) ARMANDO (acute kidney injury) Code(s): N17.9 - ACUTE KIDNEY FAILURE, UNSPECIFIED SNOMED Code(s): 43917481 Comment: - Monitor renal function - ARMANDO on CKD? Appears creat has been elevated since 2015 (4) atrial fibrillation Comment: - Currently sinus/sinus tach - Continue AC with eliquis and rate control with bisoprolol (5) obesity-hypoventilation Comment: - On continueous O2 - CPAP at night (6) Diabetes Code(s): E11.9 - TYPE 2 DIABETES MELLITUS WITHOUT COMPLICATIONS SNOMED Code(s) : 43638528 Comment: - On lispro SS - Lantus added today, sugars >250 (7) FERNANDO on CPAP Code(s): G47.33 - OBSTRUCTIVE SLEEP APNEA (ADULT) (PEDIATRIC) SNOMED Code(s): 77271125 Comment: - Continue home CPAP (8) Elevated troponin Code(s): R74.8 - ABNORMAL LEVELS OF OTHER SERUM ENZYMES SNOMED Code(s): 407516261 Comment: - Likely demand ischemia in the setting of acute sepsis - ECHO as above, no chest pain Status and Disposition: Remain inpatient for bacteremia/sepsis
[2017-08-08] MEDS: Atorvastatin* 20 MG TAB PO SCH (17:34)
[2017-08-08] MEDS: Insulin GLARGINE(*) 1 UNITS UNIT SUBCUT SCH (21:00)
[2017-08-08] MEDS: Mometasone 220 MCG MDI INH SCH (21:02)
[2017-08-09] MEDS: Cefepime 1 GM in Dextrose(*) 1 GM/50 ML BAG IV SCH ×2 (00:34→13:08)
[2017-08-09] MEDS: metroNIDAZOLE IV 500 MG/100ML* 500 MG/100 ML BAG IVPB SCH ×2 (05:31→13:46)
[2017-08-09] MEDS: Apixaban* 5 MG TAB PO SCH ×2 (08:15→20:52)
[2017-08-09] MEDS: Bisoprolol TAB* 5 MG PO SCH (08:15)
[2017-08-09] MEDS: Gabapentin CAP(*) 300 MG PO SCH ×3 (08:15→20:52)
[2017-08-09] MEDS: Acetaminophen TAB* 325 MG PO PRN (08:15)
[2017-08-09] MEDS: SILDENAFIL 20 MG PO SCH (08:16)
[2017-08-09] MEDS: Fluticasone NASAL SPRAY 50MCG* 16 gm SPRAY BTL BOTH NARES SCH (08:16)
[2017-08-09] MEDS: NS 0.9% 1000 ML* 1,000 ML IV SCH ×2 (08:17→21:38)
[2017-08-09 08:28] LABS: ABS Basophils 0.1 10^3/ul (0-0.2); ABS Eosinophils 0 10^3/ul (0-0.6); ABS Monocytes 0.9 10^3/ul (0-0.8); ABS Neutrophils 12.3 10^3/ul (1.5-7.7); ABS Nucleated RBC 0 10^3/ul; Eosinophil % 0 % (0-6); Hematocrit 35 % (35-47); Hemoglobin 11.5 g/dl (12.0-16.0); Lymphocyte % 6.8 % (25-47); Mean Corpuscular HGB Conc 33 g/dl (31-36); Mean Corpuscular Hemoglobin 31 pg (27-31); Mean Corpuscular Volume 94 fL (80-97); Mean Platelet Volume 7 um3 (7.4-10.4); Nucleated Red Blood Cells % 0.1; Platelet Count 186 10^3/ul (150-450); Red Cell Distribution Width 14 % (10.5-15); White Blood Count 14.2 10^3/ul (3.5-10.8)
[2017-08-09 08:50] LABS: EGFR Non-African American 53.6 (>60)
[2017-08-09] MEDS: Insulin LISPRO* 1 UNITS UNIT SUBCUT SCH ×3 (09:28→18:06)
[2017-08-09] MEDS: Atorvastatin* 20 MG TAB PO SCH (17:37)
--- NOTE | 2017-08-09 17:49 | PN ---
Subjective Date of Service: 08/09/17 Interval History: Patient seen and examined. Feeling well, breathing improved, no fever or chills. OOB to chair. Tolerating PO. Remains on O2 but not in distress. Eager to go home. Discussed dispo planning, maybe tomorrow depending on renal US and recommendations from ID. Patient agreeable. Objective Active Medications: Acetaminophen (Tylenol Tab*) 650 mg PO Q4H PRN PRN Reason: FEVER/PAIN Last Admin: 08/09/17 08:15 Dose: 650 mg Al Hydrox/Mg Hydrox/Simethicone (Maalox Plus*) 30 ml PO Q6H PRN PRN Reason: INDIGESTION Albuterol/Ipratropium (Duoneb (Albuterol 2.5 Mg/Ipratropium 0.5 Mg)) 1 neb INH Q4H PRN PRN Reason: SOB/WHEEZING Apixaban (Eliquis*) 5 mg PO BID [facility] Last Admin: 08/09/17 08:15 Dose: 5 mg Atorvastatin Calcium (Lipitor*) 20 mg PO 1700 [facility] Last Admin: 08/09/17 17:37 Dose: 20 mg Bisoprolol Fumarate (Zebeta Tab*) 10 mg PO DAILY [facility] Last Admin: 08/09/17 08:15 Dose: 10 mg Dextrose (D50w Syringe 50 Ml*) 12.5 gm IV PUSH .FOR FS < 60 - SS PRN PRN Reason: FS < 60 Docusate Sodium (Colace Cap*) 100 mg PO BID PRN PRN Reason: CONSTIPATION Fluticasone Propionate (Flonase Nasal [place] 50mcg*) 2 spray BOTH NARES DAILY [facility] Last Admin: 08/09/17 08:16 Dose: 2 spray Gabapentin (Neurontin Cap(*)) 300 mg PO TID [facility] Last Admin: 08/09/17 13:22 Dose: 300 mg Sodium Chloride (Ns 0.9% 1000 Ml*) 1,000 mls @ 125 mls/hr IV PER RATE [facility] Last Admin: 08/09/17 08:17 Dose: 125 mls/hr Cefepime HCl (Maxipime 1 Gm In Dextrose Duplex (*)) 1 gm in 50 mls @ 100 mls/ hr IV Q12H [facility] Last Admin: 08/09/17 13:08 Dose: 100 mls/hr Insulin Glargine (Lantus(*)) 15 units SUBCUT Q24H [facility] Last Admin: 08/08/17 21:00 Dose: 15 unit Insulin Human Lispro (Humalog*) 0 units SUBCUT AC [facility] PRN Reason: Protocol Last Admin: 08/09/17 13:21 Dose: 2 units Mometasone Furoate (Asmanex 220 Mcg Mdi *) 2 puff INH QPM [facility] Last Admin: 08/08/17 21:02 Dose: 2 inh Ondansetron HCl (Zofran Inj*) 4 mg IV Q4H PRN PRN Reason: NAUSEA/VOMITING Senna (Senokot Tab*) 1 tab PO BID PRN PRN Reason: CONSTIPATION Sildenafil Citrate (Revatio (Nf)) 20 mg PO DAILY [facility] PRN Reason: Protocol Last Admin: 08/09/17 08:16 Dose: 20 mg Trazodone HCl (Desyrel Tab*) 100 mg PO BEDTIME PRN PRN Reason: SLEEP Vital Signs - 8 hr 08/09/17 08/09/17 08/09/17 11:23 13:22 15:29 Temperature 97.5 F 97.1 F Pulse Rate 64 73 Respiratory 16 20 16 Rate Blood Pressure 132/62 131/62 (mmHg) O2 Sat by Pulse 98 97 Oximetry Oxygen Devices in Use Now: Nasal Cannula Appearance: Alert, NAD Ears/Nose/Mouth/Throat: NL Teeth, Lips, Gums, Mucous Membranes Moist Neck: Trachea Midline Respiratory: Symmetrical Chest Expansion and Respiratory Effort, Clear to Auscultation Cardiovascular: NL Sounds; No Murmurs; No JVD, RRR Extremities: - - LLE edema at baseline Skin: No Rash or Ulcers Neurological: Alert and Oriented x 3, NL Gait Nutrition: Taking PO's Result Diagrams: 08/09/17 08:13 08/09/17 08:13 Additional Lab and Data: Microbiology and Other Data: Microbiology 08/08/17 01:40 Urine Culture - Final Urine Microbiology 08/07/17 22:50 Aerobic Blood Culture - Preliminary Blood Venous No Growth Day 1 Anaerobic Blood Culture - Preliminary Escherichia Coli 08/08/17 01:40 Urine Culture - Final Urine 08/07/17 22:57 Aerobic Blood Culture - Preliminary Blood Venous No Growth Day 1 Anaerobic Blood Culture - Preliminary No Growth Day 1 Diagnostic Imaging: Patient Name: BETHANY MONTAÑO Medical Record#: [id number] Ordering Physician: Jayson Garza MD Acct.#: [id number] : 1945 Age: 71 Sex: F Location: [address] [place] [address] - MEDICAL/TELEMETRY Exam Date: 08/07/172239 ADM Status: ADM IN Order Information: CHEST AP PORTABLE Accession Number: [id number] CPT: 88899 INDICATION: Shortness of breath. COMPARISON: Comparison is made with a prior study from January 11, 2015. TECHNIQUE: A portable view of the chest was obtained. FINDINGS: The heart is mildly enlarged and unchanged from the prior exam. The lungs are clear. No pleural effusion is seen. IMPRESSION: NO EVIDENCE FOR ACUTE DISEASE. <Electronically signed by Robert Foley MD in OV> 08/08/17 0755 Dictated By: Robert Foley MD Dictated Date/Time: 08/08/17 0755 Transcribed Date/Time: 08/08/17 0754 Copy to: Cardiac ECHO 08/08/17: Conclusions Global left ventricular wall motion and contractility are within normal limits. There is normal left ventricular systolic function. The estimated ejection fraction is 55-60%. The right ventricular global systolic function is normal. There is no evidence of aortic stenosis. There is mild mitral regurgitation. There is moderate tricuspid regurgitation. There is evidence of mild to moderate pulmonary hypertension. There is no significant pericardial effusion. There are no significant changes when compared to the previous study Assess/Plan/Problems-Billing Assessment: This is a 71 year old morbidly obese female with hx of afib, FERNANDO, DMII, HTN, PHTN, COPD that presented to the ER with c/o rigors and SOB, admitted for SIRS, now with positive blood culture for eColi. - Patient Problems (1) SIRS due to Gram-negative infection Code(s): A41.50 - GRAM-NEGATIVE SEPSIS, UNSPECIFIED SNOMED Code(s): 086231450 Comment: - IVF rescusitation for sepsis, urinary source? - Ecoli per today's micro - Renal US today to look for pylo, as urine is a negative culture - Procalcitonin = 28 - Atbx as per Dr. Guaman (2) Dehydration Code(s): E86.0 - DEHYDRATION SNOMED Code(s): 44530386 Comment: - Monitor for fluid overload after IV hydration in ER - No resp distress noted (3) ARMANDO (acute kidney injury) Code(s): N17.9 - ACUTE KIDNEY FAILURE, UNSPECIFIED SNOMED Code(s): 94004576 Comment: - ARMANDO on CKD? Appears creat has been elevated since 2015 - Creat 1.06 today (4) atrial fibrillation Comment: - Currently sinus - Continue AC with eliquis and rate control with bisoprolol (5) obesity-hypoventilation Comment: - On continuous O2 - CPAP at night (6) Diabetes Code(s): E11.9 - TYPE 2 DIABETES MELLITUS WITHOUT COMPLICATIONS SNOMED Code(s) : 02745812 Comment: - On lispro SS - Lantus added today, sugars >250 (7) FERNANDO on CPAP Code(s): G47.33 - OBSTRUCTIVE SLEEP APNEA (ADULT) (PEDIATRIC) SNOMED Code(s): 37000980 Comment: - Continue home CPAP (8) Elevated troponin Code(s): R74.8 - ABNORMAL LEVELS OF OTHER SERUM ENZYMES SNOMED Code(s): 889832430 Comment: - Likely demand ischemia in the setting of acute sepsis - ECHO as above, no chest pain Status and Disposition: Remain inpatient for bacteremia/sepsis, but improving greatly. May DC home tomorrow on PO atbx.
--- NOTE | 2017-08-09 18:56 | RAD ---
INDICATION: Bacteremia COMPARISON: None TECHNIQUE: Real-time ultrasound examination of the bilateral kidneys and urinary bladder including grayscale and Doppler color flow analysis. FINDINGS: Bilaterally the kidneys are normal in size and echogenicity. There are no hypervascular renal masses. There are no renal calculi or hydronephrosis identified. A benign-appearing cyst is noted in the left lower pole. The lozoya of the urinary bladder are smooth. The pre and post urinary bladder volumes are 229 mL and 1 mm, respectively. The left ureteral jet is not visualized. IMPRESSION: 1. No sonographically apparent acute abnormality of the kidneys. 2. The left ureteral jet is not visualized. Otherwise examination of the urinary bladder is normal.
[2017-08-09] MEDS: Mometasone 220 MCG MDI INH SCH (19:41)
--- NOTE | 2017-08-09 20:02 | CONS ---
CONSULTATION REPORT: DATE OF CONSULT: 08/09/17 REQUESTING PHYSICIAN: Anamaria Khan NP CONSULTING SERVICE: Infectious Disease. REASON FOR CONSULT: E. coli bacteremia. IMPRESSION: 1. Admitted with fever and rigors and 1/4 bottles blood culture drawing E. coli. Urinalysis show blood and nitrates and leukocyte esterase. She has had no urinary symptoms. Urine culture is negative. It was obtained after she had a dose of Levaquin, possible that is a false negative or that she could have some ureteral obstruction due to stone disease and infection behind the stone. She does not have any abdominal symptoms, which makes hydroureteronephrosis seem less likely as well as diverticular disease or abscess. 2. Morbid obesity. 3. Atrial fibrillation. 4. Obstructive sleep apnea. 5. Type 2 diabetes. RECOMMENDATIONS: Continue cefepime and I will check a renal and bladder ultrasound to rule out hydronephrosis. I think if that is negative, then 10 days of oral antibiotics based on the final susceptibility pattern will be reasonable. HISTORY OF PRESENT ILLNESS: This 71-year-old woman with obesity and diabetes admitted with rigors. They came on suddenly on Tuesday. Before then, she had been feeling great. She was with her cousin. She developed fever, rigors, came to the hospital. Her white blood cell count was 6 on the night of 08/07/17 , next morning it was 15. She had a dose of Levaquin in the ER after blood cultures were obtained before the urine culture and the next morning, her white count was 15,000 and 1/4 bottles of blood culture growing E. coli and influenza PCR was negative. Urine culture negative. Urine analysis as above. Yesterday, she had some malaise, but no further fever. Today, she feels back to her usual self. Has been eating great, up, walking around. No flank pain, no abdominal pain. She has no prosthetic material present that she knows of. PAST MEDICAL HISTORY: 1. Morbid obesity. 2. Type 2 diabetes. 3. Left ACL repair. 4. Obstructive sleep apnea, on CPAP. 5. COPD. 6. Hypertension. 7. Hyperlipidemia. 8. Pulmonary hypertension. 9. Status post hysterectomy. 10. Status post open reduction and internal fixation of the left ankle. 11. Atrial fibrillation. ALLERGIES: No known drug allergies. MEDICATIONS: 1. Albuterol inhaler. 2. Apixaban. 3. Lipitor. 4. Bisoprolol. 5. Cefepime 1 g every 12 hours. 6. Fluticasone. 7. Gabapentin. 8. Insulin glargine. 9. Insulin lispro. 10. Mometasone. 11. Sildenafil. 12. Trazodone. FAMILY HISTORY: No tuberculosis. SOCIAL HISTORY: She lives with her cousin in [place]. She is retired, no travel or sick contacts. REVIEW OF SYSTEMS: A 14-point review of systems was negative except as noted above in history of present illness. PHYSICAL EXAM: Vital Signs: Temperature 36, heart rate 60, respiratory rate 16 , blood pressure 130/60, O2 saturation 98% on 2 L. In general, she is awake and not in distress. Neurologic: She is oriented x3, follows all commands. HEENT: There is no conjunctival hemorrhage. Oropharynx: Without lesions. Neck: Supple. Lymph Nodes: There is no inguinal, axillary or epitrochlear lymphadenopathy. Heart: Regular rate and rhythm without murmurs, rubs or gallops. Lungs: Clear to auscultation bilaterally. Abdomen: Soft, nontender , nondistended. There are bowel sounds present. There is no suprapubic tenderness. Skin: There is no rash or splinter hemorrhages. Musculoskeletal: There is no spine tenderness to palpation or joint synovitis. DIAGNOSTIC STUDIES/LAB DATA: Creatinine 1.0, down from 1.4 on admission. White blood cell count 14, hemoglobin 11, platelets 186. Please see impression and recommendations as outlined above, which I have discussed with Anamaria Khan. Thank you for asking me to see Ms. Gr in consultation. [id number]/[facility] #: [id number] [facility] HEALTHJohn
[2017-08-09] MEDS: Insulin GLARGINE(*) 1 UNITS UNIT SUBCUT SCH (20:55)
[2017-08-10] MEDS: Cefepime 1 GM in Dextrose(*) 1 GM/50 ML BAG IV SCH ×2 (01:09→13:19)
[2017-08-10] MEDS: NS 0.9% 1000 ML* 1,000 ML IV SCH (08:15)
[2017-08-10] MEDS: SILDENAFIL 20 MG PO SCH (08:16)
[2017-08-10] MEDS: Bisoprolol TAB* 5 MG PO SCH (08:16)
[2017-08-10] MEDS: Apixaban* 5 MG TAB PO SCH (08:16)
[2017-08-10] MEDS: Gabapentin CAP(*) 300 MG PO SCH ×2 (08:16→13:20)
[2017-08-10] MEDS: Fluticasone NASAL SPRAY 50MCG* 16 gm SPRAY BTL BOTH NARES SCH (08:17)
[2017-08-10] MEDS: Acetaminophen TAB* 325 MG PO PRN (08:24)
[2017-08-10] MEDS: Insulin LISPRO* 1 UNITS UNIT SUBCUT SCH (10:56)
[2017-08-10] MEDS ORDERED: Insulin LISPRO* 1 UNITS UNIT SUBCUT SCH (11:30)
[2017-08-10 11:42] VITALS: BP 108/49
[2017-08-11] MEDS ORDERED: Levofloxacin TAB* 500 MG PO SCH (09:00)
== END 2017-08-10 15:05 | disposition home or self-care (01) | DRG 872 ==
LOC: ED 22:09 → MEDTELE 08-08 01:35
PROVIDERS: ADMIT Pediatrics; ATTEND Internal Medicine
DX: A41.51 Sepsis due to Escherichia coli [E. coli] (principal); N17.9 Acute kidney failure, unspecified; I27.20 Pulmonary hypertension, unspecified; Z68.41 Body mass index [BMI] 40.0-44.9, adult; I50.9 Heart failure, unspecified; I11.0 Hypertensive heart disease with heart failure; I48.0 Paroxysmal atrial fibrillation; E66.2 Morbid (severe) obesity with alveolar hypoventilation; E11.9 Type 2 diabetes mellitus without complications; E86.0 Dehydration; M19.90 Unspecified osteoarthritis, unspecified site; R74.8 Abnormal levels of other serum enzymes; J44.9 Chronic obstructive pulmonary disease, unspecified; G47.33 Obstructive sleep apnea (adult) (pediatric); E78.5 Hyperlipidemia, unspecified; Z90.710 Acquired absence of both cervix and uterus; Z87.891 Personal history of nicotine dependence; Z83.3 Family history of diabetes mellitus; Z80.1 Family history of malignant neoplasm of trachea, bronchus and lung; Z87.440 Personal history of urinary (tract) infections; Z82.49 Family history of ischemic heart disease and other diseases of the circulatory system
CPT/HCPCS: 36415; 71045; 76770; 80048; 80053; 81003; 81015; 83605; 83880; 84145; 84484; 85025; 85610; 85730; 86140; 87040; 87077; 87086; 87186; 87205; 87502; 93005; 93306; 94640; 94760; 99284; A9270-GY; J0692; J2930; J3475; J3490

== ENCOUNTER 2018-02-13 09:27 | Observation (INO) | payer MEDICARE ==
[2018-02-13] MEDS ORDERED: Albuterol/Ipratropium NEB.SOL* Albuterol 2.5 MG/Ipratropium 0.5 MG 3 ML INH ONE (10:11)
[2018-02-13] MEDS ORDERED: methylPREDNISolone 125 MG* 2 ML VIAL IV ONE (10:12)
[2018-02-13] MEDS ORDERED: NS 0.9% 1000 ML* 1,000 ML IV ONE (10:15)
--- NOTE | 2018-02-13 11:07 | RAD ---
HISTORY: cough COMPARISONS: August 07, 2017 VIEWS: 4: Frontal dual-energy and lateral views of the chest. FINDINGS: CARDIOMEDIASTINAL SILHOUETTE: The cardiomediastinal silhouette is normal. RADHA: The radha are normal. PLEURA: The costophrenic angles are sharp. No pleural abnormalities are noted. LUNG PARENCHYMA: The lungs are clear. ABDOMEN: The upper abdomen is clear. There is no subphrenic gas. BONES AND SOFT TISSUES: No bone or soft tissue abnormalities are noted. OTHER: None. IMPRESSION: NO ACTIVE CARDIOPULMONARY DISEASE.
[2018-02-13 11:40] LABS: ABS Basophils 0 10^3/ul (0-0.2); ABS Eosinophils 0.2 10^3/ul (0-0.6); ABS Lymphocytes 0.5 10^3/ul (1.0-4.8); ABS Monocytes 0.6 10^3/ul (0-0.8); ABS Nucleated RBC 0 10^3/ul; Eosinophil % 2.6 % (0-6); Hematocrit 32 % (35-47); Hemoglobin 10.7 g/dl (12.0-16.0); Mean Corpuscular HGB Conc 33 g/dl (31-36); Mean Corpuscular Hemoglobin 32 pg (27-31); Mean Corpuscular Volume 96 fL (80-97); Mean Platelet Volume 7.5 um3 (7.4-10.4); Nucleated Red Blood Cells % 0; Platelet Count 202 10^3/ul (150-450); Red Blood Count 3.36 10^6/ul (4.00-5.40); Red Cell Distribution Width 14 % (10.5-15); White Blood Count 7.3 10^3/ul (3.5-10.8)
--- NOTE | 2018-02-13 13:25 | ED ---
Shortness of Breath - HPI Summary HPI Summary: Patient is a 72-year-old female who presents emergency department for shortness of breath, cough and sinus congestion that started yesterday. Patient has history of COPD, afib, DM. Pt. states she wears oxygen at night and has a CPAP but does not typically need oxygen during the day. Patient states since yesterday she has been wearing her oxygen during the day due to increased shortness of breath. Associated symptoms of chills. Denies pain, vomiting, diarrhea, urinary symptoms, chest pain. Symptoms are moderate in severity. Activity makes symptoms worse. Nothing makes symptoms better. - History of Current Complaint Chief Complaint: EDUpperRespComplaint Time Seen by Provider: 02/13/18 09:41 Hx Obtained From: Patient - Allergy/Home Medications Allergies/Adverse Reactions: Allergies Allergy/AdvReac Type Severity Reaction Status Date / Time No Known Allergies Allergy Verified 02/13/18 09:33 PMH/Surg Hx/FS Hx/Imm Hx Previously Healthy: Yes Endocrine/Hematology History: Reports: Hx Diabetes Denies: Hx Anticoagulant Therapy, Hx Blood Disorders, Hx Blood Transfusions, Hx Bone Marrow Disease, Hx Systemic Lupus Erythematosus, Hx Sickle Cell Disease , Hx Thyroid Disease, Hx Anemia, Hx Unexplained Bleeding, Other Endocrine/ Hematological Disorders Cardiovascular History: Reports: Hx Congestive Heart Failure, Hx Hypercholesterolemia, Hx Hypertension Denies: Hx Aneurysm, Hx Angina, Hx Angioplasty, Hx Auto Implanted Cardiovert Defib, Hx Cardiac Arrest, Hx Cardiomegaly, Hx Congenital Heart Disease, Hx Coronary Artery Disease, Hx Deep Vein Thrombosis, Hx Embolism, Hx Hypotension, Hx Pacemaker/ICD, Hx Peripheral Vascular Disease, Hx Rheumatic Fever, Hx Syncope , Hx Valvular Heart Disease, Other Cardiovascular Problems/Disorders Respiratory History: Reports: Hx Chronic Obstructive Pulmonary Disease (COPD) - 2 L at home, Hx Sleep Apnea - CPap at HS, Home oxygen at 2 liters, Other Respiratory Problems/Disorders - Pulmonary HTN Denies: Hx Asthma, Hx Chronic Bronchitis, Hx Cystic Fibrosis, Hx Lung Cancer , Hx Pleural Effusion, Hx Pneumonia, Hx Pulmonary Edema, Hx Pulmonary Embolism, Hx Seasonal Allergies GI History: Denies: Hx Ulcer History: Reports: Hx Acute Renal Failure, Other Problems/Disorders - UTI Denies: Hx Renal Disease Comment Only: Hx Chronic Renal Failure - Yes-2004 Musculoskeletal History: Reports: Hx Arthritis, Hx Back Problems - If in one position too long, Hx Orthopedic Injury - Left knee and ankle surgery (ACL repair and ORIF ankle) Denies: Hx Bursitis, Hx Congenital Bone Abnormalities, Hx Fibromyalgia, Hx Gout, Hx Osteoporosis, Hx Scoliosis, Hx Tendonitis, Other Musculoskeletal History Sensory History: Reports: Hx Contacts or Glasses Denies: Hx Hearing Aid Opthamlomology History: Reports: Hx Contacts or Glasses Neurological History: Denies: Hx Dementia, Hx Seizures Psychiatric History: Denies: Hx Anxiety, Hx Attention Deficit Hyperactivity Disorder, Hx Eating Disorder, Hx Depression, Hx Panic Disorder, Hx Post Traumatic Stress Disorder, Hx Inpatient Treatment, Hx Community Mental Health Tx, Hx Schizophrenia, Hx Bipolar Disorder, Hx Suicide Attempt, Hx of Violent Episodes Against Others, Hx Substance Abuse, Other Psychiatric Issues/Disorders - Surgical History Surgery Procedure, Year, and Place: hysterectomy, lt knee ACL repair, lt ankle ORIF Hx Anesthesia Reactions: No - Immunization History Date of Influenza Vaccine: 04/07 Infectious Disease History: No Infectious Disease History: Denies: Hx Clostridium Difficile, Hx Hepatitis, Hx Human Immunodeficiency Virus (HIV), Hx of Known/Suspected MRSA, Hx Shingles, Hx Tuberculosis, Traveled Outside the in Last 30 Days - Family History Known Family History: Positive: Hypertension, Diabetes, Other - Lung Cancer - Social History Occupation: Retired Lives: Alone Alcohol Use: None Substance Use Type: Reports: None Smoking Status (MU): Former Smoker Type: Cigarettes Length of Time of Smoking/Using Tobacco: 40 yrs Have You Smoked in the Last Year: No Review of Systems Positive: Chills Eyes: Negative Positive: Nasal Discharge Cardiovascular: Negative Negative: Palpitations, Chest Pain Positive: Shortness Of Breath, Cough Gastrointestinal: Negative Negative: Abdominal Pain, Vomiting, Diarrhea, Nausea Genitourinary: Negative Neurological: Negative All Other Systems Reviewed And Are Negative: Yes Physical Exam Triage Information Reviewed: Yes Vital Signs On Initial Exam: Initial Vitals Temp Pulse Resp BP Pulse Ox 98.6 F 85 20 111/55 85 02/13/18 09:28 02/13/18 09:28 02/13/18 09:28 02/13/18 09:28 02/13/18 09:28 Vital Signs Reviewed: Yes Appearance: Positive: Ill-Appearing - Pt. sitting up in bed, speaks in 2 word sentences. On present. Answers questions appropriately and pleasant. Skin: Positive: Warm, Dry Head/Face: Positive: Normal Head/Face Inspection Eyes: Positive: Normal, EOMI ENT: Positive: Pharyngeal erythema, TMs normal, Sinus tenderness. Negative: Tonsillar swelling, Tonsillar exudate Neck: Positive: Supple, Nontender Respiratory/Lung Sounds: Positive: Other - Diminshed breath sounds in bases. No accessory muscle use. Cardiovascular: Positive: Normal, RRR Abdomen Description: Positive: Nontender, Soft Neurological: Positive: Normal, Alert, Oriented to Person Place, Time, CN Intact II-III Psychiatric: Positive: Affect/Mood Appropriate Diagnostics - Vital Signs Vital Signs Temp Pulse Resp BP Pulse Ox 02/13/18 13:05 100/58 02/13/18 12:37 75 16 87/46 96 02/13/18 12:06 75 13 105/53 99 02/13/18 12:00 75 19 96 02/13/18 11:36 75 20 103/53 97 02/13/18 11:06 68 17 100/54 02/13/18 11:04 71 92 02/13/18 11:00 68 17 96 02/13/18 10:36 71 22 117/60 94 02/13/18 10:17 73 18 105/49 95 02/13/18 10:00 78 26 91 02/13/18 09:47 84 116/63 87 02/13/18 09:46 84 84 02/13/18 09:28 98.6 F 85 20 111/55 85 - Laboratory Lab Results: Lab Results 02/13/18 02/13/18 02/13/18 Range/Units 10:22 10:22 10:22 WBC 7.3 (3.5-10.8) 10^3/ul RBC 3.36 L (4.00-5.40) 10^6/ul Hgb 10.7 L (12.0-16.0) g/dl Hct 32 L (35-47) % MCV 96 (80-97) fL MCH 32 H (27-31) pg MCHC 33 (31-36) g/dl RDW 14 (10.5-15) % Plt Count 202 (150-450) 10^3/ul MPV 7.5 (7.4-10.4) um3 Neut % (Auto) 81.7 (38-83) % Lymph % (Auto) 7.0 L (25-47) % Cedar % (Auto) 8.6 H (0-7) % Eos % (Auto) 2.6 (0-6) % Baso % (Auto) 0.1 (0-2) % Absolute Neuts (auto) 6.0 (1.5-7.7) 10^3/ul Absolute Lymphs (auto) 0.5 L (1.0-4.8) 10^3/ul Absolute Monos (auto) 0.6 (0-0.8) 10^3/ul Absolute Eos (auto) 0.2 (0-0.6) 10^3/ul Absolute Basos (auto) 0 (0-0.2) 10^3/ul Absolute Nucleated RBC 0 10^3/ul Nucleated RBC % 0 Sodium 135 (135-145) mmol/L Potassium 4.5 (3.5-5.0) mmol/L Chloride 101 (101-111) mmol/L Carbon Dioxide 27 (22-32) mmol/L Anion Gap 7 (2-11) mmol/L BUN 39 H (6-24) mg/dL Creatinine 2.50 H (0.51-0.95) mg/dL Est GFR ( Amer) 23.0 (>60) Est GFR (Non-Af Amer) 19.0 (>60) BUN/Creatinine Ratio 15.6 (8-20) Glucose 128 H (70-100) mg/dL Lactic Acid 1.5 (0.5-2.0) mmol/L Calcium 9.7 (8.6-10.3) mg/dL Total Bilirubin 0.50 (0.2-1.0) mg/dL AST 13 (13-39) U/L ALT 12 (7-52) U/L Alkaline Phosphatase 53 (34-104) U/L Troponin I 0.01 (<0.04) ng/mL C-Reactive Protein 105.09 H (<8.01) mg/L B-Natriuretic Peptide ( - 100) pg/mL Total Protein 6.9 (6.4-8.9) g/dL Albumin 3.6 (3.2-5.2) g/dL Globulin 3.3 (2-4) g/dL Albumin/Globulin Ratio 1.1 (1-3) 02/13/ Range/Units 10:22 WBC (3.5-10.8) 10^3/ul RBC (4.00-5.40) 10^6/ul Hgb (12.0-16.0) g/dl Hct (35-47) % MCV (80-97) fL MCH (27-31) pg MCHC (31-36) g/dl RDW (10.5-15) % Plt Count (150-450) 10^3/ul MPV (7.4-10.4) um3 Neut % (Auto) (38-83) % Lymph % (Auto) (25-47) % Cedar % (Auto) (0-7) % Eos % (Auto) (0-6) % Baso % (Auto) (0-2) % Absolute Neuts (auto) (1.5-7.7) 10^3/ul Absolute Lymphs (auto) (1.0-4.8) 10^3/ul Absolute Monos (auto) (0-0.8) 10^3/ul Absolute Eos (auto) (0-0.6) 10^3/ul Absolute Basos (auto) (0-0.2) 10^3/ul Absolute Nucleated RBC 10^3/ul Nucleated RBC % Sodium (135-145) mmol/L Potassium (3.5-5.0) mmol/L Chloride (101-111) mmol/L Carbon Dioxide (22-32) mmol/L Anion Gap (2-11) mmol/L BUN (6-24) mg/dL Creatinine (0.51-0.95) mg/dL Est GFR ( Amer) (>60) Est GFR (Non-Af Amer) (>60) BUN/Creatinine Ratio (8-20) Glucose (70-100) mg/dL Lactic Acid (0.5-2.0) mmol/L Calcium (8.6-10.3) mg/dL Total Bilirubin (0.2-1.0) mg/dL AST (13-39) U/L ALT (7-52) U/L Alkaline Phosphatase (34-104) U/L Troponin I (<0.04) ng/mL C-Reactive Protein (<8.01) mg/L B-Natriuretic Peptide 138 H ( - 100) pg/mL Total Protein (6.4-8.9) g/dL Albumin (3.2-5.2) g/dL Globulin (2-4) g/dL Albumin/Globulin Ratio (1-3) Result Diagrams: 02/14/18 06:31 02/14/18 06:31 Lab Statement: Any lab studies that have been ordered have been reviewed, and results considered in the medical decision making process. Course/Dx - Course Course Of Treatment: Pt. presenting with increased cough, SOB, and sinus congestion. On arrival to ER, pt.'s O2 saturation was 85% on RA. Stablet VS otherwise, afebrile. Pt. placed on NC and O2 improved to low 90's. IV started and labs obtained. Duoneb, fluids, and solumedrol ordered. Pt. does not meet septic criteria at this time. CBC shows normal WBC, H and H of 10.7 & 32. BUn and Cr elevated at 39 and 2.50. CRP elevated at 105. BNP minimally elevated at 138. Negative troponin. ECG done at 1011 shows a sinus rhtyhm of 72 bmp, normal axis, RBBB, no ST elevation or depression. CXR is negative for infiltrate, effusion or acute findings, per radiology reading. On re-exam. Pt. is sititng on side of bed and states she is feeling much better. She is breathing easier. On re-auscultation she is moving air much better. Pt. was ambulated on RA with pulse ox and O2 dropped down to 84%. Pt.'s BP has also come down to 90's/50's. Discussed with pt. admission. Pt. states she would prefer to go home but has agreed to stay in hospital. I spoke with hospitalist, Dr. Lopez, who has accepted admission. - Diagnoses Differential Diagnosis/HQI/PQRI: Positive: CHF, Chest Wall Pain, TX, Pneumonia, Pulmonary Edema Provider Diagnoses: COPD exacerbation, Hypoxia Discharge - Sign-Out/Discharge Documenting (check all that apply): Patient Departure - Discharge Plan Condition: Improved Disposition: ADMITTED TO [facility] - Billing Disposition and Condition Condition: IMPROVED Disposition: Admitted to [facility]
[2018-02-13] MEDS ORDERED: Albuterol 2.5 MG/3 ML NEB.SOL* (0.083%) INH PRN (15:04)
[2018-02-13] MEDS ORDERED: Ondansetron INJ* 2 MG/ML VIAL IV PRN (15:04)
[2018-02-13] MEDS ORDERED: Acetaminophen TAB* 325 MG PO PRN (15:04)
[2018-02-13] MEDS ORDERED: Dextrose 50% Syringe 50 ML* 25 GM/50 ML SYRINGE IV PUSH PRN (15:14)
[2018-02-13] MEDS ORDERED: NS 0.9% 1000 ML* 1,000 ML IV SCH (15:15)
[2018-02-13] MEDS ORDERED: Azithromycin IV(*) 500 MG in NS 0.9% 250 ML* 250 ML IVPB SCH (16:00)
[2018-02-13] MEDS ORDERED: Albuterol/Ipratropium NEB.SOL* Albuterol 2.5 MG/Ipratropium 0.5 MG 3 ML INH SCH ×2 (16:00→19:00)
--- NOTE | 2018-02-13 17:09 | HP ---
CC: Dr. Aparicio * HISTORY AND PHYSICAL: DATE OF ADMISSION: 02/13/18 PRIMARY CARE PROVIDER: Dr. Aparicio. ATTENDING PHYSICIAN WHILE IN THE HOSPITAL: Dr. Archuleta * (report dictated by Leo Wong NP). CHIEF COMPLAINT: 1. Congestion. 2. Cough. 3. Shortness of breath. HISTORY OF PRESENT ILLNESS: Ms. Gr is a 72-year-old female patient with a history of COPD, on chronic O2; history of AFib; FERNANDO; diabetes; hypertension; hyperlipidemia; pulmonary hypertension; and morbid obesity. She is coming into the ED today. She says that yesterday she started noticing that she was becoming stuffed up, she just was having a chill. Yesterday afternoon, she noticed that she was having trouble breathing out of her nose and she woke up this morning, she felt like she was not getting her oxygen that she normally wears at bedtime because her nose was so stuffed up. She says that she has been coughing, exaggerating a dry cough for the last 24 hours and she has had progressively worsening shortness of breath. She denied any fever, but she did admit to having chills last night and yesterday afternoon. She denied having any recent sick contacts and she says she has just been aching all over. She does state that she was getting a little bit more short of breath, she was not feeling good. She called her primary. Unfortunately, she cannot get in to see her primary until . She was concerned because she felt that if she waited any longer she would possibly develop pneumonia, so she decided to come into the ER to be evaluated. She denies any significant weight change. She is denying having any chest pain. She denied having any fevers or chills. She denied any calf pain or leg pain or leg swelling. She says the congestion was concerning and she came into the ED. Initially, there was concern for bronchitis, she was wheezing. She was treated here in the ED aggressively with steroids and nebs, but noted that at times her oxygen level did drop down to 88 % while she was resting and while she was sitting in the stretcher. There was concern because of this and the fact that her blood pressure when she came in was in the one teens and did dip down to the 90s and responded to fluids. Because of these findings, we were asked to evaluate for admission. PAST MEDICAL HISTORY: Significant for: 1. COPD. 2. AFib. 3. FERNANDO. 4. Diabetes. 5. Hypertension. 6. Hyperlipidemia. 7. Pulmonary hypertension. 8. Morbid obesity. PAST SURGICAL HISTORY: The patient has had: 1. A hysterectomy. 2. ORIF of the left lower extremity. HOME MEDICATIONS: Include: 1. Metformin 500 mg p.o. daily. 2. Trazodone 100 mg p.o. at bedtime. 3. Demadex 10 mg p.o. b.i.d. 4. Spironolactone 25 mg daily. 5. Januvia 100 mg p.o. daily. 6. Revatio 20 mg p.o. daily. 7. Cozaar 25 mg daily. 8. Levaquin 500 mg p.o. every 24 hours. 9. Gabapentin 300 mg p.o. t.i.d. 10. Flonase 50 mcg nasally daily. 11. Fluticasone (Flovent) 1 inhalation inhaled b.i.d. 12. Bisoprolol 10 mg p.o. daily. 13. Lipitor 20 mg daily. 14. Apixaban 5 mg p.o. b.i.d. 15. Combivent 1 puff inhaled q.i.d. 16. Tylenol 650 mg every 4 hours as needed. ALLERGIES TO MEDICATIONS: No known drug allergies. FAMILY HISTORY: Mother had a history of dementia. Father had a history of lung cancer. SOCIAL HISTORY: The patient is a former smoker. 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 She is . Surrogate decision maker is her son, Bridger. REVIEW OF SYSTEMS: There is no documented fever. She denies having any significant weight change. There was no double vision. There was no ear discharge. No rhinorrhea. There was no sore throat. She does admit to having nasal congestion. She denies having any chest pain. There is dyspnea on exertion. There is no abdominal pain, no nausea, no vomiting. There was no dysuria. There was no frequency. No seizure, no loss of consciousness. No pruritus and no skin ulcerations. Review of 14 systems was completed, all others negative. PHYSICAL EXAMINATION GENERAL: At this time, Ms. Gr is a 72-year-old female patient. She is sitting in the ED stretcher. She does not appear to be in any acute distress. VITAL SIGNS: Blood pressure 108/48 now, pulse of 78, respirations 16, O2 sat 95 % on 2 L, temperature when she came in was 98.6. HEENT: Head: Atraumatic and normocephalic. Eyes: EOMs intact. Sclerae anicteric and not pale. Throat: Oral mucosa appears to be moist. No oropharyngeal erythema. NECK: Supple. LUNGS: Diminished in the bases. She had equal diaphragmatic expansion. HEART: Sounds S1, S2. She had a regular rate and rhythm. No murmurs, rubs, or gallops. ABDOMEN: Soft. It was flat, nontender. Bowel sounds were present. EXTREMITIES: Pulses were 2+ throughout. She had some peripheral edema in the left lower extremity, which is chronic since her ankle surgery. She had 5/5 strength. NEUROLOGICAL: The patient awake. She is alert. She is oriented x3. Tongue is midline. Asset Management Analyst were equal. She had no gross focal deficits. SKIN: Intact. DIAGNOSTIC STUDIES/LAB DATA: Labs today are revealing WBC of 7.3, RBC of 3.36 , hemoglobin of 10.7, hematocrit of 32, platelet count of 202. Sodium 135, potassium 4.5, chloride of 102, bicarb 27, BUN 39, creatinine of 2.50. Her baseline creatinine in July was 1.4, has been as high as 3 three years ago. Her lactic 1.5, calcium 9.7. Total bili 0.5, AST 13, ALT 12, alk phos 53. Troponin 0.01. CRP 105. BNP 138. Chest x-ray obtained today, which shows no active cardiopulmonary disease. She had an EKG obtained today, which showed right bundle branch block, rate of 72. No ST elevations or T-wave inversions were noted. When you review back to her July exam, it appears to be similar, but rate is slower now. Old medical records were reviewed. ASSESSMENT AND PLAN: Ms. Gr is a 72-year-old female patient coming into the ED today with complaints of cough, not feeling well with congestion, shortness of breath. In the ED, it was noted that she had episodes of hypoxia. We were asked to evaluate for admission. She will be admitted under observation status for: 1. Chronic obstructive pulmonary disease exacerbation. She is not really wheezing on exam, so I am going to stick with inhaled steroids, standing nebs every 4 hours, p.r.n. albuterol. I put her on azithromycin. We do not have an infiltrate on x- ray, so I did not put her on Rocephin, but we will do azithromycin and we will encourage pulmonary toileting. I will get a sputum culture, Legionella antigen, Strep pneumo antigen. We will continue to follow and we will continue her O2. Her O2 level on 2 L is 95%. 2. Atrial fibrillation. She is rate controlled. We will continue her apixaban. We will continue to monitor. 3. Obstructive sleep apnea. We will continue her CPAP. 4. Diabetes. I will put her on lispro sliding scale. 5. Hypertension. Continue meds as prescribed with the exception of her spironolactone and Demadex, I did hold. I continued her Cozaar. I continued her beta-lul with hold parameters. 6. Hyperlipidemia. Continue statin therapy. 7. Pulmonary hypertension. Continue meds as prescribed. 8. Acute on chronic kidney disease. Her creatinine today is 2.5. I am sending off a FENa. I am going to get a bladder scan. This is probably from dehydration secondary to the acute illness and the fact that she again does appear to be dry, so I am going to give her a liter of fluids, check the FENa. She is not having any signs of obstructive uropathy, so we will continue to monitor and with hydration, I will hold nephrotoxic agents. 9. DVT prophylaxis: She is on Eliquis. 10. Code status: Full code. 11. Fluids, electrolytes, and nutrition: She can have a heart-healthy diet. TIME SPENT: Time spent on the admission was 60 minutes, greater than half the time was spent [id number] with the patient obtaining my history and physical, other half time was spent going over the plan of care with the patient and implementing the plan of care. I discussed the plan of care with my attending, Dr. Archuleta, he is in agreement. LEO WONG, ALISSON [id number]/[facility] #: [id number] THERON
[2018-02-13 17:27] LABS: Urine Appearance Cloudy; Urine Blood 1+ (Negative); Urine Color Yellow; Urine Ketones Negative (Negative); Urine Protein 1+(30 mg/dL) (Negative); Urine Red Blood Cell 2+(6-10/hpf) (Absent); Urine Specific Gravity 1.015 (1.010-1.030); Urine Urobilinogen Negative (Negative); Urine White Blood Cell 2+(11-20/hpf) (Absent)
[2018-02-13] MEDS: Insulin LISPRO* 1 UNITS UNIT SUBCUT SCH (17:47)
[2018-02-13] MEDS: Mometasone/Formoter 200/5 MDI INH SCH (19:46)
[2018-02-13] MEDS: Apixaban* 5 MG TAB PO SCH (20:06)
[2018-02-13] MEDS ORDERED: traZODone TAB* 100 MG PO SCH (21:00)
[2018-02-14] MEDS: Albuterol/Ipratropium NEB.SOL* Albuterol 2.5 MG/Ipratropium 0.5 MG 3 ML INH SCH ×2 (01:52→07:19)
[2018-02-14 06:41] LABS: ABS Basophils 0 10^3/ul (0-0.2); ABS Eosinophils 0 10^3/ul (0-0.6); ABS Lymphocytes 0.6 10^3/ul (1.0-4.8); ABS Monocytes 0.2 10^3/ul (0-0.8); ABS Neutrophils 4.7 10^3/ul (1.5-7.7); ABS Nucleated RBC 0 10^3/ul; Eosinophil % 0 % (0-6); Hematocrit 30 % (35-47); Hemoglobin 10.3 g/dl (12.0-16.0); Lymphocyte % 11.1 % (25-47); Mean Corpuscular HGB Conc 34 g/dl (31-36); Mean Corpuscular Hemoglobin 32 pg (27-31); Mean Corpuscular Volume 95 fL (80-97); Mean Platelet Volume 7.2 um3 (7.4-10.4); Nucleated Red Blood Cells % 0.1; Platelet Count 194 10^3/ul (150-450); Red Cell Distribution Width 14 % (10.5-15); White Blood Count 5.5 10^3/ul (3.5-10.8)
[2018-02-14 06:44] LABS: INR 1.36 (0.77-1.02)
[2018-02-14 06:58] LABS: EGFR Non-African American 24.4 (>60)
[2018-02-14] MEDS: Mometasone/Formoter 200/5 MDI INH SCH (07:19)
[2018-02-14] MEDS ORDERED: Albuterol/Ipratropium NEB.SOL* Albuterol 2.5 MG/Ipratropium 0.5 MG 3 ML INH PRN (07:27)
[2018-02-14] MEDS ORDERED: Atorvastatin* 20 MG TAB PO SCH (09:00)
[2018-02-14] MEDS ORDERED: Bisoprolol TAB* 5 MG PO SCH (09:00)
[2018-02-14] MEDS ORDERED: SILDENAFIL 20 MG PO SCH (09:00)
[2018-02-14] MEDS ORDERED: Gabapentin CAP(*) 300 MG PO SCH (09:00)
[2018-02-14] MEDS: Insulin LISPRO* 1 UNITS UNIT SUBCUT SCH ×2 (09:13→12:27)
[2018-02-14] MEDS: Apixaban* 5 MG TAB PO SCH (09:14)
[2018-02-14 11:47] VITALS: BP 111/45
[2018-02-14] MEDS ORDERED: Azithromycin TAB* 250 MG PO SCH (15:30)
--- NOTE | 2018-02-14 21:29 | DS ---
CC: Dr. Aparicio * DISCHARGE SUMMARY: DATE OF ADMISSION: DATE OF DISCHARGE: 02/14/18 HOSPITAL COURSE: This 72-year-old woman presented with nonproductive cough, shortness of breath. She became ill about the day before admission. She had some chills and sweat once 2 days before admission. In the emergency room, she was afebrile. She was admitted overnight for observation. She was given azithromycin. She got 1 dose of methylprednisolone in the emergency room. She felt much better the next day. She had no fever during her hospital stay. I note her white blood count was 5.5 on the day of discharge. It was 7.3 on the day of admission. Her blood sugars were higher by the next day, probably related to the methylprednisolone she received. She did not get any more steroids. My clinical impression is she probably had an infectious illness, possibly viral. She will complete her azithromycin course at home. She was doing well on room air on the day of discharge. She uses oxygen at night at home. She has fluticasone and Combivent inhalers that she uses every day at home. She has a nebulizer, but never puts any medication in it. I think she will probably do quite well unless she gets another respiratory infection, in which case possibly some nebulized bronchodilators might help. FINAL DIAGNOSES: 1. Chronic obstructive pulmonary disease exacerbation. 2. Diabetes. 3. Atrial fibrillation. 4. Hypertension. 5. Obstructive sleep apnea. DISCHARGE MEDICATIONS: 1. Azithromycin 250 mg daily for 3 more days. 2. Fluticasone 110 mcg inhaler 1 puff b.i.d. 3. Albuterol/ipratropium Respimat 1 puff q.i.d. 4. Sitagliptin 100 mg daily. 5. Bisoprolol 10 mg daily. 6. Torsemide 10 mg b.i.d. 7. Spironolactone 25 mg daily. 8. Gabapentin 300 mg t.i.d. 9. Metformin 500 mg daily. 10. Apixaban 5 mg b.i.d. 11. Trazodone 100 mg h.s. 12. Sildenafil 20 mg daily. 13. Losartan 25 mg daily. 14. Atorvastatin 20 mg daily. 15. Fluticasone nasal spray daily. 16. Acetaminophen 650 mg every 4 hours p.r.n. CONDITION ON DISCHARGE: Improved. DISCHARGE DISPOSITION: Discharged home. FOLLOWUP: Dr. Michael Aparicio. [id number]/[facility] #: [id number] THERON
== END 2018-02-14 16:30 | disposition home or self-care (01) ==
LOC: ED 09:27 → MED 15:18
PROVIDERS: ADMIT Student in an Organized Health Care Education/Training Program; ATTEND Internal Medicine
DX: J44.1 Chronic obstructive pulmonary disease with (acute) exacerbation (principal); R05 Cough; E11.9 Type 2 diabetes mellitus without complications; I48.91 Unspecified atrial fibrillation; I10 Essential (primary) hypertension; G47.33 Obstructive sleep apnea (adult) (pediatric); R06.02 Shortness of breath; Z87.891 Personal history of nicotine dependence; R09.02 Hypoxemia; E66.01 Morbid (severe) obesity due to excess calories; E78.5 Hyperlipidemia, unspecified
CPT/HCPCS: 36415; 71046; 80048; 80053; 81003; 81015; 82570; 83605; 83880; 84300; 84484; 85025; 85610; 86140; 87040; 87086; 87899; 93005; 94640; 94660; 96374; 99283; A9270-GY; G0378; J0456; J2930

== ENCOUNTER 2020-06-24 09:37 | Inpatient (IN) ==
[2020-06-24] MEDS: NS 0.9% 1000 ml BAG 1,000 ML IV.FLUID IV ONE ×4 (09:49→09:52)
[2020-06-24 10:20] LABS: Hematocrit 33 % (35-47); Hemoglobin 10.4 g/dL (12.0-16.0); Mean Corpuscular HGB Conc 32 g/dL (31-36); Mean Corpuscular Hemoglobin 28 pg (27-31); Mean Corpuscular Volume 88 fL (80-97); Mean Platelet Volume 8.2 fL (7.4-10.4); Platelet Count 181 10^3/uL (150-450); Red Blood Count 3.72 10^6 /uL (3.70-4.87); Red Cell Distribution Width 15 % (10-15); White Blood Count 15.2 10^3/uL (3.5-10.8)
[2020-06-24] MEDS ORDERED: cefTRIAXone 1 gm/50 mL NS BAG 1 GM/50 ML BAG IV ONE (10:20)
[2020-06-24] MEDS ORDERED: Azithromycin IV 500 MG in NS 0.9% 250 ml 250 ML IVPB ONE (10:20)
[2020-06-24 10:31] LABS: Influenza A Molecular Negative (Negative); Influenza B Molecular Negative (Negative)
[2020-06-24] MEDS: Norepinephrine 16MCG/ML IVPRE 4,000 MCG/250 ML BAG IV SCH ×3 (10:38→22:41)
[2020-06-24 10:40] LABS: C Reactive Protein 348.03 mg/L (<8.01)
[2020-06-24 10:46] LABS: Activated Partial Thrombo Time 34.3 seconds (26.0-38.0); INR 2.87 (0.82-1.09)
[2020-06-24 10:47] LABS: Troponin I 0.19 ng/mL (<0.03)
[2020-06-24 11:01] LABS: ABS Lymphocytes 0.6 10^3/ul (1.0-4.8); ABS Monocytes 0.9 10^3/ul (0-0.8); ABS Neutrophils 13.7 10^3/ul (1.5-7.7); Lymphocyte % 3.6 %
[2020-06-24 11:34] LABS: Albumin 3.5 g/dL (3.2-5.2); Anion Gap 13 mmol/L (2-11); CO2 Carbon Dioxide 24 mmol/L (22-32); Calcium 10.2 mg/dL (8.6-10.3); Chloride 96 mmol/L (101-111); Potassium 4.3 mmol/L (3.5-5.0); Sodium 133 mmol/L (135-145)
[2020-06-24 11:40] LABS: ALT 62 U/L (7-52); AST 247 U/L (13-39); Albumin/Globulin Ratio 0.9 (1-3); Alkaline Phosphatase 81 U/L (34-104); BUN/Creatinine Ratio 13.9 (8-20); Blood Urea Nitrogen 53 mg/dL (6-24); EGFR African American 14.1 (>60); EGFR Non-African American 11.6 (>60); Globulin 3.8 g/dL (2-4); Glucose 131 mg/dL (70-100); Total Protein 7.3 g/dL (6.4-8.9)
[2020-06-24 12:05] LABS: Creatine Kinase 8613 U/L (10-223)
[2020-06-24 12:12] LABS: Urine Appearance Turbid; Urine Bilirubin Negative (Negative); Urine Blood 3+ (Negative); Urine Color Yellow; Urine Glucose Negative (Negative); Urine Ketones Negative (Negative); Urine Nitrite Negative (Negative); Urine Protein 2+(100 mg/dL) (Negative); Urine Specific Gravity 1.017 (1.010-1.030); Urine Urobilinogen Negative (Negative)
[2020-06-24 12:27] LABS: Urine Bacteria Absent (Absent); Urine Red Blood Cell 3+(>10/hpf) (Absent); Urine White Blood Cell 3+(>20/hpf) (Absent)
[2020-06-24] MEDS ORDERED: Diclofenac 1% GEL (NF) 100 GM TUBE TOPICAL SCH (13:00)
[2020-06-24] MEDS ORDERED: Lactated Ringers 1000 ml BAG 1,000 ML IV SCH (16:00)
[2020-06-24 16:35] LABS: Troponin I 0.13 ng/mL (<0.03)
[2020-06-24] MEDS: Mometasone 220 MCG MDI INH SCH (21:00)
[2020-06-25 04:34] LABS: Hematocrit 28 % (35-47); Hemoglobin 8.9 g/dL (12.0-16.0); Mean Corpuscular HGB Conc 32 g/dL (31-36); Mean Corpuscular Hemoglobin 28 pg (27-31); Mean Corpuscular Volume 87 fL (80-97); Mean Platelet Volume 7.8 fL (7.4-10.4); Platelet Count 173 10^3/uL (150-450); Red Blood Count 3.17 10^6 /uL (3.70-4.87); Red Cell Distribution Width 15 % (10-15); White Blood Count 14.8 10^3/uL (3.5-10.8)
[2020-06-25 04:45] LABS: INR 2.37 (0.82-1.09)
[2020-06-25 04:52] LABS: Albumin 3.1 g/dL (3.2-5.2); Albumin/Globulin Ratio 0.9 (1-3); Calcium 9.5 mg/dL (8.6-10.3); EGFR African American 21.2 (>60); EGFR Non-African American 17.5 (>60); Globulin 3.3 g/dL (2-4); Magnesium 1.8 mg/dL (1.9-2.7); Phosphorus 3.8 mg/dL (2.5-5.0); Potassium 3.9 mmol/L (3.5-5.0); Total Bilirubin 0.4 mg/dL (0.2-1.0); Total Protein 6.4 g/dL (6.4-8.9)
[2020-06-25] MEDS: SPIRIVA Respimat (tiotropium) 2.5 mcg/inh Inhaler INH SCH (08:10)
[2020-06-25] MEDS ORDERED: Magnesium Sulfate IV 3 GM in NS 0.9% 100 ml BAG 100 ML IVPB ONE (08:32)
[2020-06-25] MEDS: Fluticasone NASAL SPRAY 50MCG 16 gm SPRAY BTL INTRANASAL SCH (09:57)
[2020-06-25] MEDS: Vitamin THERAPEUTIC TAB PO SCH (09:58)
[2020-06-25] MEDS ORDERED: cefTRIAXone 1 gm/50 mL NS BAG 1 GM/50 ML BAG IVPB SCH (10:00)
[2020-06-25] MEDS: Azithromycin 500 mg/250 ml NS 500 MG/250 ML BAG IVPB SCH (12:42)
[2020-06-25] MEDS: CMCS:Sildenafil (PULMONARY)20mg(NF) PO SCH ×2 (15:16→20:15)
[2020-06-25] MEDS: Mometasone 220 MCG MDI INH SCH (21:08)
[2020-06-26 06:47] LABS: ABS Neutrophils 9.8 10^3/ul (1.5-7.7); Eosinophil % 0.3 %; Hematocrit 28 % (35-47); Hemoglobin 9.1 g/dL (12.0-16.0); Lymphocyte % 8.3 %; Mean Corpuscular HGB Conc 33 g/dL (31-36); Mean Corpuscular Hemoglobin 28 pg (27-31); Mean Corpuscular Volume 86 fL (80-97); Mean Platelet Volume 7.7 fL (7.4-10.4); Platelet Count 188 10^3/uL (150-450); Red Blood Count 3.24 10^6 /uL (3.70-4.87); Red Cell Distribution Width 16 % (10-15); White Blood Count 11.9 10^3/uL (3.5-10.8)
[2020-06-26 07:12] LABS: Albumin/Globulin Ratio 0.8 (1-3); BUN/Creatinine Ratio 21.9 (8-20); EGFR African American 32.7 (>60); EGFR Non-African American 27.1 (>60); Globulin 3.6 g/dL (2-4); Potassium 3.8 mmol/L (3.5-5.0); Total Bilirubin 0.4 mg/dL (0.2-1.0); Total Protein 6.6 g/dL (6.4-8.9)
[2020-06-26] MEDS: SPIRIVA Respimat (tiotropium) 2.5 mcg/inh Inhaler INH SCH (09:53)
[2020-06-26] MEDS: CMCS:Sildenafil (PULMONARY)20mg(NF) PO SCH ×3 (09:56→19:55)
[2020-06-26] MEDS: Vitamin THERAPEUTIC TAB PO SCH (09:56)
[2020-06-26] MEDS: Fluticasone NASAL SPRAY 50MCG 16 gm SPRAY BTL INTRANASAL SCH (09:57)
[2020-06-26] MEDS: Azithromycin 500 mg/250 ml NS 500 MG/250 ML BAG IVPB SCH (14:06)
[2020-06-26] MEDS: Mometasone 220 MCG MDI INH SCH (18:00)
[2020-06-27 06:07] LABS: ABS Eosinophils 0.1 10^3/ul (0-0.6); ABS Lymphocytes 0.9 10^3/ul (1.0-4.8); ABS Monocytes 0.7 10^3/ul (0-0.8); ABS Neutrophils 5.9 10^3/ul (1.5-7.7); Eosinophil % 0.9 %; Hematocrit 29 % (35-47); Hemoglobin 9.6 g/dL (12.0-16.0); Lymphocyte % 11.4 %; Mean Corpuscular HGB Conc 33 g/dL (31-36); Mean Corpuscular Hemoglobin 29 pg (27-31); Mean Corpuscular Volume 87 fL (80-97); Nucleated Red Blood Cells % 0.1; Platelet Count 184 10^3/uL (150-450); Red Blood Count 3.34 10^6 /uL (3.70-4.87); Red Cell Distribution Width 16 % (10-15); White Blood Count 7.6 10^3/uL (3.5-10.8)
[2020-06-27 06:33] LABS: Albumin 2.9 g/dL (3.2-5.2); Albumin/Globulin Ratio 0.8 (1-3); BUN/Creatinine Ratio 19.6 (8-20); Calcium 10.1 mg/dL (8.6-10.3); EGFR African American 40.3 (>60); EGFR Non-African American 33.3 (>60); Globulin 3.8 g/dL (2-4); Potassium 3.8 mmol/L (3.5-5.0); Total Bilirubin 0.5 mg/dL (0.2-1.0); Total Protein 6.7 g/dL (6.4-8.9)
[2020-06-27] MEDS: SPIRIVA Respimat (tiotropium) 2.5 mcg/inh Inhaler INH SCH (08:15)
[2020-06-27] MEDS: Vitamin THERAPEUTIC TAB PO SCH (09:26)
[2020-06-27] MEDS: CMCS:Sildenafil (PULMONARY)20mg(NF) PO SCH ×3 (09:30→21:12)
[2020-06-27] MEDS ORDERED: Potassium Chlor 20 meq TAB.ER PO ONE (10:17)
[2020-06-27] MEDS: Fluticasone NASAL SPRAY 50MCG 16 gm SPRAY BTL INTRANASAL SCH (17:19)
[2020-06-27] MEDS: Mometasone 220 MCG MDI INH SCH (20:07)
[2020-06-28 06:29] LABS: ABS Eosinophils 0.1 10^3/ul (0-0.6); ABS Lymphocytes 0.8 10^3/ul (1.0-4.8); ABS Monocytes 1.1 10^3/ul (0-0.8); ABS Neutrophils 6.5 10^3/ul (1.5-7.7); Eosinophil % 0.8 %; Hematocrit 26 % (35-47); Hemoglobin 8.7 g/dL (12.0-16.0); Mean Corpuscular HGB Conc 33 g/dL (31-36); Mean Corpuscular Hemoglobin 29 pg (27-31); Mean Corpuscular Volume 86 fL (80-97); Mean Platelet Volume 8.4 fL (7.4-10.4); Platelet Count 218 10^3/uL (150-450); Red Blood Count 3.05 10^6 /uL (3.70-4.87); Red Cell Distribution Width 16 % (10-15); White Blood Count 8.5 10^3/uL (3.5-10.8)
[2020-06-28 06:55] LABS: Albumin 2.9 g/dL (3.2-5.2); Albumin/Globulin Ratio 0.8 (1-3); BUN/Creatinine Ratio 17.6 (8-20); Calcium 9.9 mg/dL (8.6-10.3); EGFR African American 46.1 (>60); EGFR Non-African American 38.1 (>60); Globulin 3.5 g/dL (2-4); Magnesium 1.8 mg/dL (1.9-2.7); Potassium 4.1 mmol/L (3.5-5.0); Total Bilirubin 0.5 mg/dL (0.2-1.0); Total Protein 6.4 g/dL (6.4-8.9)
[2020-06-28] MEDS ORDERED: Magnesium Sulfate 2 gm BAG 2 GM/50 ML BAG IVPB ONE (07:24)
[2020-06-28] MEDS: SPIRIVA Respimat (tiotropium) 2.5 mcg/inh Inhaler INH SCH (08:30)
[2020-06-28] MEDS: CMCS:Sildenafil (PULMONARY)20mg(NF) PO SCH ×3 (09:30→21:21)
[2020-06-28] MEDS: Fluticasone NASAL SPRAY 50MCG 16 gm SPRAY BTL INTRANASAL SCH (09:30)
[2020-06-28] MEDS: Vitamin THERAPEUTIC TAB PO SCH (09:30)
[2020-06-28] MEDS: Mometasone 220 MCG MDI INH SCH (19:37)
[2020-06-29 07:00] LABS: ABS Eosinophils 0.1 10^3/ul (0-0.6); ABS Lymphocytes 0.7 10^3/ul (1.0-4.8); ABS Monocytes 0.9 10^3/ul (0-0.8); ABS Neutrophils 6.1 10^3/ul (1.5-7.7); Hematocrit 27 % (35-47); Hemoglobin 8.7 g/dL (12.0-16.0); Lymphocyte % 9.3 %; Mean Corpuscular HGB Conc 32 g/dL (31-36); Mean Corpuscular Hemoglobin 28 pg (27-31); Mean Corpuscular Volume 88 fL (80-97); Mean Platelet Volume 8.1 fL (7.4-10.4); Platelet Count 258 10^3/uL (150-450); Red Blood Count 3.09 10^6 /uL (3.70-4.87); Red Cell Distribution Width 15 % (10-15); White Blood Count 7.9 10^3/uL (3.5-10.8)
[2020-06-29 07:12] LABS: Albumin 2.9 g/dL (3.2-5.2); Albumin/Globulin Ratio 0.8 (1-3); BUN/Creatinine Ratio 15.6 (8-20); EGFR African American 49.5 (>60); EGFR Non-African American 40.9 (>60); Globulin 3.7 g/dL (2-4); Potassium 4.2 mmol/L (3.5-5.0); Total Bilirubin 0.4 mg/dL (0.2-1.0); Total Protein 6.6 g/dL (6.4-8.9)
[2020-06-29] MEDS: SPIRIVA Respimat (tiotropium) 2.5 mcg/inh Inhaler INH SCH (07:21)
[2020-06-29] MEDS: CMCS:Sildenafil (PULMONARY)20mg(NF) PO SCH ×2 (08:29→14:01)
[2020-06-29] MEDS: Fluticasone NASAL SPRAY 50MCG 16 gm SPRAY BTL INTRANASAL SCH (08:29)
[2020-06-29] MEDS: Vitamin THERAPEUTIC TAB PO SCH (08:30)
[2020-06-29 15:03] VITALS: BP 116/46
== END 2020-06-29 15:00 | disposition home or self-care (01) | DRG 853 ==
LOC: ED 09:37 → ICU 12:30 → MEDTELE 06-25 16:28
PROVIDERS: ADMIT Internal Medicine; ATTEND Internal Medicine